=== PATIENT | female | born 1945 | race Caucasian/White ===

== ENCOUNTER → 2016-02-25 10:57 | Outpatient (CLI) | payer MEDICARE, OTHER ==
[2016-02-06 07:19] VITALS: BMI 17.0
[~2016-02-25 10:57] MED LIST: ADVAIR 100/501 DISK INH; BAYER CHEWABLE81 MG PO; CYCLOBENZAPRINE10 MG PO; HYDROCODON-ACE1 EAC7 PO; MEDROL DOSE PACK4 MG PO; NORCO 7.5/325 T1 TA1 PO; VIBRAMYCIN 100100 MG PO; ZOFRAN4 MG PO
== END | disposition home or self-care (01) ==
LOC: D.CT 10:57
DX: R05 Cough (principal)

== ENCOUNTER 2016-03-04 12:46 | Inpatient (IN) | payer MEDICARE, OTHER ==
[~2016-03-04] VITALS: Ht 162.6 cm; Wt 41.8 kg
[~2016-03-04 12:46] MED LIST changes: -MEDROL DOSE PACK4 MG PO; -VIBRAMYCIN 100100 MG PO
--- NOTE | 2016-03-04 13:20 | NUR ---
REC'D PT FROM DR. KRAUSE'S OFFICE. PT A/O, AND AMBULATORY. C/O WEAKNESS. PLACED ON FALL PRECAUTIONS. 22G IV PLACED TO PT'S RIGHT FOREARM. PLACED PT ON 2L O2 VIA NC. ORIENTED PT TO ROOM. [place] HAT PLACED IN TOILET FOR I&O. PT'S GRANDDAUGHTER IN ROOM. CALL LIGHT WITH IN REACH. ALLERGY BAND AND FALL BAND PLACED ON PT. DR. KRAUSE HERE. WILL CONT. TO MONITOR.
[2016-03-04 13:36] VITALS: BP 106/45; BMI 15.1
--- NOTE | 2016-03-04 13:49 | NUR ---
PATIENT ARRIVED DIRECT ADMIT. IV STARTED BY Valery SOARES LPN. BREATHING TREATMENT GIVEN BY RESP. SEE ASSESSMENT FOR FURTHER
[2016-03-04 14:19] LABS: BASOPHILS 0.3 % (0.0-2.0); EOSINOPHILS 0.3 % (0-7); HEMATOCRIT 44.4 % (36.0-48.0); HEMOGLOBIN 14.1 g/dL (12-16); IMMATURE GRANULOCYTES 0.3 % (0-5); LYMPHOCYTES 9.7 % (15-50); MCH 29.4 pg (26.0-34.0); MCHC 31.8 g/dL (31.0-37.0); MCV 92.5 fL (80.0-100.0); MEAN PLATELET VOLUME 10.3 fL (7.4-10.4); MONOCYTES 11.1 % (2-11); NEUTROPHILS 78.3 % (40-80); PLATELET COUNT 286 10x3/uL (130-400); RDW 14.1 % (11.5-14.5); WBC 10.7 10x3/uL (4.8-10.8)
[2016-03-04 14:50] LABS: CALC OSMOLALITY 283 mosm/kg (275-300); CALCIUM 9.4 mg/dL (8.5-10.1); CARBON DIOXIDE 27.2 mmol/L (21.0-32.0); CHLORIDE - SERUM 102 mmol/L (98-107); CREATININE - SERUM 0.8 mg/dL (0.6-1.3); GLUCOSE 105 mg/dL (74-106); POTASSIUM - SERUM 4.2 mmol/L (3.5-5.1); SODIUM 142 mmol/L (136-145); UREA NITROGEN 15 mg/dL (7-18); eGFR NON AFRICAN AMERICAN 75 mL/min (90-120)
--- NOTE | 2016-03-04 15:21 | NUR ---
PT SITTING UP IN BED VISITNG WITH FAMILY. A/O. NO DISTRESS NOTED. DENIES NEEDS. IV ZITHROMAX INFUSING. CALL LIGHT WITH IN REACH. WILL CONT. TO MONITOR.
[2016-03-04 16:00] VITALS: BP 106/45; BP 128/69
--- NOTE | 2016-03-04 18:08 | NUR ---
SITTING UP IN BED WATCHING TV. A/O. REFUSED SUPPER. C/O NAUSEA. ZOFRAN GIVEN. PT JUST WANTED COFFEE. CALL LIGHT WITH IN REACH. WILL CONT. TO MONITOR.
--- NOTE | 2016-03-04 19:22 | NUR ---
PT SITTING UP IN BED, A/O, VISITING WITH FAMILY. STATES NAUSEA BETTER. DENIES NEEDS AT THIS TIME. NO DISTRESS NOTED. CALL LIGHT WITH IN REACH. WILL CONT. TO MONITOR.
[2016-03-04 20:00] VITALS: BP 121/38
[2016-03-05] VITALS: BP 115/49
--- NOTE | 2016-03-05 00:20 | NUR ---
PT LYING IN BED, HAS BEEN AWAKE, ALERT, ORIENTED, CURRENTLY RESTING, EYES CLOSED, RESPIRATIONS EVEN AND UNLABORED. PT STATED SHE HAS NAUSEA EARLIER WITH HER EVENING MEDS, HOWEVER IT HAS PASSED. CONTINUE TO MONITOR CLOSELY. BED LOW, CALL LIGHT IN REACH, SIDE RAILS X 2, HOB 25 DEGREES.
--- NOTE | 2016-03-05 03:38 | NUR ---
PT LYING IN BED, HAS BEEN AWAKE MOST OF THIS SHIFT, CONTINUES TO DENY ANY NEEDS. HOB 30 DEGREES, CALL LIGHT IN REACH, SIDE RAILS X 2, BED LOW. CONTINUE TO MONITOR CLOSELY.
[2016-03-05 04:00] VITALS: BP 112/48
[2016-03-05 06:08] LABS: BASOPHILS 0 % (0.0-2.0); EOSINOPHILS 0 % (0-7); HEMATOCRIT 38.2 % (36.0-48.0); HEMOGLOBIN 12.2 g/dL (12-16); IMMATURE GRANULOCYTES 0.2 % (0-5); LYMPHOCYTES 7.4 % (15-50); MCH 28.9 pg (26.0-34.0); MCHC 31.9 g/dL (31.0-37.0); MEAN PLATELET VOLUME 10.9 fL (7.4-10.4); NEUTROPHILS 88.4 % (40-80); PLATELET COUNT 275 10x3/uL (130-400); RBC 4.22 10x6/uL (4.00-5.40); RDW 13.9 % (11.5-14.5); WBC 8.7 10x3/uL (4.8-10.8)
[2016-03-05 06:21] LABS: MCV 90.5 fL (80.0-100.0)
[2016-03-05 06:26] LABS: CALC OSMOLALITY 275 mosm/kg (275-300); CALCIUM 8.7 mg/dL (8.5-10.1); CHLORIDE - SERUM 104 mmol/L (98-107); CREATININE - SERUM 0.7 mg/dL (0.6-1.3); GLUCOSE 120 mg/dL (74-106); POTASSIUM - SERUM 4.8 mmol/L (3.5-5.1); SODIUM 138 mmol/L (136-145); eGFR NON AFRICAN AMERICAN 88 mL/min (90-120)
[2016-03-05 06:27] LABS: UREA NITROGEN 11 mg/dL (7-18)
[2016-03-05 08:02] VITALS: BP 115/58
--- NOTE | 2016-03-05 08:20 | NUR ---
INTRODUCED MYSELF TO PT PRIMARY RN FOR TODAYS SHIFT. PT IS ALERT AND ORIENTED RESTING QUIETLY IN BED. PT ISNT FEELING WELL AND STATES SHE HASNT BEEN ABLE TO GET MUCH SLEEP LATELY. PT REFUSED HER LOVENOX AND STATES SHE TAKES BABY ASA AND THATS ALL SHE NEEDS. PT IS UP AD NANCY AND ALSO REFUSES SCDS. PT HAS A R.FA PIV WITH NS @30ML/HR CURRENTLY INFUSING. DRSG CDI AND SWAB CAPS IN USE. RR NONLABORED WITH NC @2L IN PLACE. PT DENIES ANY FURTHER NEEDS AT THIS TIME. CL IN REACH, BED IN LOWEST, SIDE RAILS X2. WILL CPOC.
[2016-03-05 12:14] VITALS: BP 118/52
--- NOTE | 2016-03-05 12:50 | NUR ---
INITIATED PTS IVPB ROCEPHIN TO BE INFUSED OVER 30 MINS VIA R.FA PIV. DRSG CDI, SWAB CAPS IN USE. PT DENIES ANY PAIN OR CURRENT NEEDS. CL IN REACH. WILL CTM.
[2016-03-05 13:13] VITALS: Ht 162.6 cm; Wt 41.8 kg
--- NOTE | 2016-03-05 14:06 | NUR ---
DISCONNECTED PT REQUESTED SO SHE CAN AMBULATE WITH HER GRANDDAUGHTER. PT DENIES ANY FURTHER NEEDS. WILL CTM.
--- NOTE | 2016-03-05 14:59 | NUR ---
CONNECTED PT BACK TO HER IV POLE. INITIATED IVPB ANBX. PT RESTING QUIETLY AND STATES SHE WALKED 3 LAPS WITH HER GRANDDAUGHTER AND IT FELT GOOD. PT DENIES ANY FURTHER NEEDS AT THIS TIME. CL IN REACH. WILL CTM.
[2016-03-05 16:23] VITALS: BP 103/52
[2016-03-05 20:00] VITALS: BP 105/36
--- NOTE | 2016-03-05 21:29 | NUR ---
RESTING IN BED. ALERT ORIENTED CONVERSANT. DENIES NEEDS. NO ACUTE DISTRESS NOTED
[2016-03-06] VITALS: BP 118/59
--- NOTE | 2016-03-06 04:05 | NUR ---
DOG WARDEN AT BEDSIDE TO OBTAIN VITALS, CALL LIGHT IN REACH. WILL CONTINUE TO MONITOR.
[2016-03-06 06:23] LABS: BASOPHILS 0.1 % (0.0-2.0); EOSINOPHILS 0 % (0-7); HEMATOCRIT 39.5 % (36.0-48.0); HEMOGLOBIN 12.3 g/dL (12-16); IMMATURE GRANULOCYTES 0.2 % (0-5); LYMPHOCYTES 4.5 % (15-50); MCH 28.6 pg (26.0-34.0); MCHC 31.1 g/dL (31.0-37.0); MCV 91.9 fL (80.0-100.0); MEAN PLATELET VOLUME 10.4 fL (7.4-10.4); MONOCYTES 3.3 % (2-11); NEUTROPHILS 91.9 % (40-80); PLATELET COUNT 271 10x3/uL (130-400); WBC 16.2 10x3/uL (4.8-10.8)
[2016-03-06 06:41] LABS: CALC OSMOLALITY 278 mosm/kg (275-300); CALCIUM 8.5 mg/dL (8.5-10.1); CARBON DIOXIDE 26.9 mmol/L (21.0-32.0); CHLORIDE - SERUM 104 mmol/L (98-107); CREATININE - SERUM 0.8 mg/dL (0.6-1.3); GLUCOSE 120 mg/dL (74-106); POTASSIUM - SERUM 4.5 mmol/L (3.5-5.1); SODIUM 138 mmol/L (136-145); eGFR NON AFRICAN AMERICAN 75 mL/min (90-120)
[2016-03-06 06:44] LABS: UREA NITROGEN 17 mg/dL (7-18)
[2016-03-06 07:51] VITALS: BP 108/43
--- NOTE | 2016-03-06 08:13 | NUR ---
AM ROUNDING- PT SITTING UP IN BED RESTING WITH EYES OPEN. ON ROOM AIR. NO MONITOR. PT IS ALERT AND ORIENTED. IV SEEN TO RIGHT FOREARM THAT IS SALINE LOCKED AND PATENT. PT DOES USE 02 AT 2L VIA NC IF NEEDS TO PER REPORT. PER REPORT FROM MARKETING PERFORMANCE ANALYST NURSE, GUSTAVO, PT IS UP AD NANCY. NO NEED AT CURRENT TIME. WILL CONTINUE TO MONITOR.
[2016-03-06 12:00] VITALS: BP 108/46
--- NOTE | 2016-03-06 15:35 | NUR ---
PT IS CURRENTLY REQUESTING A CHOCLATE BOOST DRINK. CALLED [facility]. [facility] STATED THEY WOULD BRING ONE UP FOR PT.
[2016-03-06 15:58] VITALS: BP 119/43
--- NOTE | 2016-03-06 16:36 | NUR ---
Patient Name: ERA HOGAN Admission Status: Elective Accout number: [id number] Admission Date: 03-04-2016 : 1945 Admission Diagnosis:SHORTNESS OF BREATH Attending: DIAMOND Current LOS: 2 Anticipated DC Date: Planned Disposition: Home Primary Insurance: MEDICARE A & B Discharge Planning Comments: * Is the patient Alert and Oriented? Yes 0 * How many steps to enter\exit or inside your home? NONE 0 * PCP DR. KRAUSE 0 * [facility]acy [facility] 0 * Preadmission Environment Home with Family 0 * ADLs Independent 0 * Equipment None 0 * Other Equipment NO MEDICAL EQUIPMENT PROVIDER PREFERENCE 0 * List name and contact numbers for known caregivers / representatives who currently or will assist patient after discharge: REYES HOGAN, SON, 0 * Community resources currently utilized None 0 * Please name any agencies selected above. NONE 0 * Additional services required to return to the preadmission environment? No 0 * Can the patient safely return to the preadmission environment? Yes 0 * Has this patient been hospitalized within the prior 30 days at any hospital? No 0 CM MET WITH PT IN ROOM TO DISCUSS DISCHARGE PLANNING AND NEEDS. PT REPORTS LIVING AT HOME INDEPENDENTLY WITH ADULT GRANDDAUGHTER. PT HAS NO MEDICAL EQUIPMENT AND NO OUTSIDE SERVICES ASSISTING IN THE HOME. CM DISCUSSED AVAILABILITY OF HOME HEALTH, REHAB SERVICES AND MEDICAL EQUIPMENT. PT DENIES DISCHARGE NEEDS, REPORTS HER SON OR GRANDDAUGHTER WILL PICK HER UP FOR DISCHARGE HOME. IMPORTANT MESSAGE FROM MEDICARE PROVIDED AND EXPLAINED. Hydrator Operator: Thomas Holloway
--- NOTE | 2016-03-06 18:04 | NUR ---
PT IS UP WALKING AROUND HER ROOM. NO NEED AT CURRENT TIME. WILL CONTINUE TO MONITOR.
--- NOTE | 2016-03-06 19:23 | NUR ---
RESUMED CARE, PT SITTING UP IN BED, ASKING FOR IV TO BE SL, IV-RFA, DENIES ANY NEEDS, CALL LIGHT IN REACH, BED IS LOW, WILL CONTINUE TO MONITOR
[2016-03-06 20:00] VITALS: BP 119/43
[2016-03-07] VITALS: BP 113/38
--- NOTE | 2016-03-07 01:50 | NUR ---
PT RESTING SOUNDLY WITHOUT C/O OR DISTRESS NOTED. CALL LIGHT WITHIN REACH. WILL CONT TO MONITOR.
[2016-03-07 04:00] VITALS: BP 121/50
--- NOTE | 2016-03-07 04:13 | NUR ---
SLEEPING, BED IS LOW, SRX1, CALL LIGHT IN REACH
[2016-03-07 06:33] LABS: BASOPHILS 0 % (0.0-2.0); EOSINOPHILS 0 % (0-7); HEMATOCRIT 38.4 % (36.0-48.0); HEMOGLOBIN 11.9 g/dL (12-16); IMMATURE GRANULOCYTES 0.4 % (0-5); LYMPHOCYTES 6.3 % (15-50); MCH 28.3 pg (26.0-34.0); MCV 91.2 fL (80.0-100.0); MEAN PLATELET VOLUME 10.9 fL (7.4-10.4); MONOCYTES 4.4 % (2-11); NEUTROPHILS 88.9 % (40-80); PLATELET COUNT 277 10x3/uL (130-400); RBC 4.21 10x6/uL (4.00-5.40); RDW 14.1 % (11.5-14.5); WBC 13.1 10x3/uL (4.8-10.8)
[2016-03-07 06:43] LABS: CALC OSMOLALITY 280 mosm/kg (275-300); CALCIUM 8.7 mg/dL (8.5-10.1); CARBON DIOXIDE 27.1 mmol/L (21.0-32.0); CHLORIDE - SERUM 106 mmol/L (98-107); CREATININE - SERUM 0.7 mg/dL (0.6-1.3); GLUCOSE 103 mg/dL (74-106); POTASSIUM - SERUM 4.5 mmol/L (3.5-5.1); SODIUM 140 mmol/L (136-145); UREA NITROGEN 17 mg/dL (7-18); eGFR NON AFRICAN AMERICAN 88 mL/min (90-120)
--- NOTE | 2016-03-07 07:28 | NUR ---
AM ROUNDING- PT LAYING ON RIGHT SIDE WITH EYES CLOSED RESTING. ON ROOM AIR. NO MONITOR. IV SEEN TO RIGHT FOREARM THAT IS SALINE LOCKED AND PATENT. PT IS UP AD NANCY PER REPORT FROM CONSTRUCTION EQUIPMENT OVERHAULER NURSE, NIKOLAS. NO NEED AT CURRENT TIME. WILL CONTINUE TO MONITOR.
[2016-03-07 08:02] VITALS: BP 104/53
[2016-03-07 11:18] VITALS: BP 111/48
[2016-03-07 15:50] VITALS: BP 125/62
--- NOTE | 2016-03-07 18:07 | NUR ---
PT UP WALKING AROUND ROOM. NO NEED AT CURRENT TIME. WILL CONTINUE TO MONITOR.
--- NOTE | 2016-03-07 19:30 | NUR ---
RESUMED CARE OF PT, SITTING UP IN CHAIR, DENIES ANY NEEDS, [id number], CALL LIGHT IN REACH
[2016-03-07 20:28] VITALS: BP 118/32
--- NOTE | 2016-03-07 23:09 | NUR ---
PT LAYING IN BED NO DISTRESS OBSERVED CALL LIGHT IN REACH SRX2 BED LOW AND LOCKED WILL MONITOR
[2016-03-08 00:19] VITALS: BP 118/70
--- NOTE | 2016-03-08 04:58 | NUR ---
SLEEPING, NO DISTRESS NOTICED, CALL LIGHT IN REACH
[2016-03-08 05:17] VITALS: BP 116/68
[2016-03-08 05:35] LABS: BASOPHILS 0.1 % (0.0-2.0); EOSINOPHILS 0 % (0-7); HEMATOCRIT 40.3 % (36.0-48.0); HEMOGLOBIN 12.6 g/dL (12-16); IMMATURE GRANULOCYTES 0.8 % (0-5); LYMPHOCYTES 7.7 % (15-50); MCH 28.7 pg (26.0-34.0); MCHC 31.3 g/dL (31.0-37.0); MCV 91.8 fL (80.0-100.0); MEAN PLATELET VOLUME 10.6 fL (7.4-10.4); NEUTROPHILS 86.4 % (40-80); PLATELET COUNT 262 10x3/uL (130-400); RBC 4.39 10x6/uL (4.00-5.40); WBC 10.3 10x3/uL (4.8-10.8)
[2016-03-08 05:48] LABS: CALC OSMOLALITY 281 mosm/kg (275-300); CARBON DIOXIDE 27.7 mmol/L (21.0-32.0); CHLORIDE - SERUM 104 mmol/L (98-107); CREATININE - SERUM 0.7 mg/dL (0.6-1.3); GLUCOSE 123 mg/dL (74-106); POTASSIUM - SERUM 4.9 mmol/L (3.5-5.1); SODIUM 140 mmol/L (136-145); UREA NITROGEN 17 mg/dL (7-18); eGFR NON AFRICAN AMERICAN 88 mL/min (90-120)
--- NOTE | 2016-03-08 07:31 | NUR ---
RECIEVED REPORT ON PATIENT, PATIENT IS ALERT AND ORIENTED AT THIS TIME. PATIENT HAS A R FA IV THAT IS SL AT THIS TIME. PATIENT DENIES ANY NEEDS OR COMPLAINTS AT THIS TIME. GETTING BREATHING TREATMENT AT THIS TIME. BED LOW AND LOCKED. WILL CONT TO MONITOR PATIENT. CPOC
[2016-03-08 07:41] VITALS: BP 110/41
--- NOTE | 2016-03-08 09:15 | NUR ---
MORNING MEDICATION GIVEN, ASSESSMENT DONE. PATIENT DENIES ANY NEEDS AT THIS TIME. CPOC
--- NOTE | 2016-03-08 11:00 | NUR ---
PATIENT WALKING HALLWAYS. DENIES ANY NEEDS. CPOC
[2016-03-08 11:23] VITALS: BP 122/56
--- NOTE | 2016-03-08 14:00 | NUR ---
PATIENT SITTING UP IN BED, VISITOR AT BEDSIDE. PATIENT DENIES ANY NEEDS OR COMPLAINTS. CPOC
[2016-03-08 15:24] VITALS: BP 121/32
--- NOTE | 2016-03-08 16:00 | NUR ---
PATIENT RESTING IN BED, DENIES ANY PAIN AT THIS TIME. BED LOW AND LOCKED. CALL LIGHT IN REACH. CPOC
--- NOTE | 2016-03-08 18:18 | NUR ---
PATIENT SITTING ON SIDE OF BED EATING DINNER. DENIES ANY NEEDS. CPOC
[2016-03-08 19:00] VITALS: BP 127/51
--- NOTE | 2016-03-08 19:47 | NUR ---
RESUMED CARE OF PT, SITTING IN CHAIR WATCHING TV, DENIES ANY NEEDS, IV-RFA-SL, CALL LIGHT IN REACH, WILL CONTINUE TO MONITOR
[2016-03-09] VITALS: BP 113/44
--- NOTE | 2016-03-09 03:51 | NUR ---
SLEEPING, BED IS LOW, SRX2, CALL LIGHT IN REACH
[2016-03-09 04:00] VITALS: BP 129/54
[2016-03-09 05:35] LABS: BASOPHILS 0.1 % (0.0-2.0); EOSINOPHILS 0 % (0-7); HEMATOCRIT 41.1 % (36.0-48.0); HEMOGLOBIN 12.9 g/dL (12-16); IMMATURE GRANULOCYTES 1.4 % (0-5); LYMPHOCYTES 8.8 % (15-50); MCH 28.5 pg (26.0-34.0); MCHC 31.4 g/dL (31.0-37.0); MCV 90.9 fL (80.0-100.0); MEAN PLATELET VOLUME 11.4 fL (7.4-10.4); MONOCYTES 5.6 % (2-11); NEUTROPHILS 84.1 % (40-80); PLATELET COUNT 279 10x3/uL (130-400); RBC 4.52 10x6/uL (4.00-5.40); RDW 13.7 % (11.5-14.5); WBC 9.7 10x3/uL (4.8-10.8)
--- NOTE | 2016-03-09 06:00 | NUR ---
NO CHANGES FROM PREVIOUS ASSESSMENT, CALL LIGHT IN REACH. WILL CONTINUE WITH PLAN OF CARE.
[2016-03-09 06:08] LABS: CALC OSMOLALITY 278 mosm/kg (275-300); CALCIUM 8.5 mg/dL (8.5-10.1); CARBON DIOXIDE 25.8 mmol/L (21.0-32.0); CHLORIDE - SERUM 105 mmol/L (98-107); CREATININE - SERUM 0.7 mg/dL (0.6-1.3); GLUCOSE 100 mg/dL (74-106); POTASSIUM - SERUM 4.7 mmol/L (3.5-5.1); SODIUM 140 mmol/L (136-145); UREA NITROGEN 13 mg/dL (7-18); eGFR NON AFRICAN AMERICAN 88 mL/min (90-120)
--- NOTE | 2016-03-09 08:02 | NUR ---
ASSESSMENT DONE. PT SLEEPING, EASILY AROUSED. ON RA. DENIES SOB. A/O. WANTS TO GO HOME. DENIES WANTS OR NEEDS AT THIS TIME. CALL LIGHT WITH IN REACH. WILL CONT. TO MONITOR.
[2016-03-09 08:15] VITALS: BP 107/54
--- NOTE | 2016-03-09 11:26 | NUR ---
PT SLEEPING. APPEARS COMFORTABLE. RESP EVEN AND UNLABORED. CALL LIGHT WITH IN REACH. WILL CONT. TO MONITOR.
[2016-03-09 12:05] VITALS: BP 110/84
[2016-03-09] MEDS ORDERED: MEDROL DOSE PACK4 MG PO (13:39)
[2016-03-09] MEDS ORDERED: VIBRAMYCIN 100100 MG PO (13:39)
--- NOTE | 2016-03-09 15:25 | NUR ---
D/C INSTRUTIONS GIVEN TO PT AND HER GRAND-DAUGHTER. VERBALIZED UNDERSTANDING. IV ZITHROMAX INFUSING. WILL D/C IV WHEN ANTIBIOTIC DONE.
--- NOTE | 2016-03-09 15:50 | NUR ---
Patient Name: ERA HOGAN Encounter No: [id number] : 1945 Primary Insurance: MEDICARE A & B Anticipated DC Date: 03-09-2016 Planned Disposition: Home DCP follow-up note: CM MET WITH PT IN ROOM TO DISCUSS DISCHARGE NEEDS AND PLANNING. CM DISCUSSED AVAILABILITY OF HOME HEALTH, REHAB SERVICES AND MEDICAL EQUIPMENT. PT DENIES DISCHARGE NEEDS. FAMILY TO TRANSPORT HOME AT DISCHARGE. IMPORTANT MESSAGE FROM MEDICARE PROVIDED AND EXPLAINED. Thomas Holloway, CASE MANAGEMENT
--- NOTE | 2016-03-09 16:15 | NUR ---
PT'S IV REMOVED. WILL CALL FOR A W/C TO TAKE PT OUT IN.
--- NOTE | 2016-03-09 16:35 | NUR ---
PT D/C HOME-[facility]. HOME VIA PRIVATE VEHICLE.
== END 2016-03-09 16:20 | disposition home or self-care (01) | DRG 190 ==
LOC: D.M2 12:46
PROVIDERS: ADMIT Family Medicine
DX: J44.0 Chronic obstructive pulmonary disease with (acute) lower respiratory infection (principal); J18.9 Pneumonia, unspecified organism; I25.2 Old myocardial infarction; R11.10 Vomiting, unspecified; Z72.0 Tobacco use

== ENCOUNTER → 2016-07-29 08:09 | Outpatient (CLI) | payer MEDICARE, OTHER ==
[2016-03-05 13:13] VITALS: BMI 22.5
[~2016-07-29 08:09] MED LIST changes: +MEDROL DOSE PACK4 MG PO; +VIBRAMYCIN 100100 MG PO
[2016-07-29 08:34] LABS: BASOPHILS 0.7 % (0-2); EOSINOPHILS 5.4 % (0-7); HEMATOCRIT 47.5 % (36.0-48.0); HEMOGLOBIN 15.1 g/dL (12-16); IMMATURE GRANULOCYTES 0.1 % (0-5); LYMPHOCYTES 23.5 % (15-50); MCH 29.5 pg (26.0-34.0); MCHC 31.8 g/dL (31.0-37.0); MEAN PLATELET VOLUME 10.6 fL (7.4-10.4); MONOCYTES 9.6 % (2-11); NEUTROPHILS 60.7 % (40-80); PLATELET COUNT 235 10x3/uL (130-400); RBC 5.11 10x6/uL (4.00-5.40); RDW 14.6 % (11.5-14.5); WBC 7.5 10x3/uL (4.8-10.8)
[2016-07-29 09:05] LABS: ALBUMIN 3.7 g/dL (3.4-5.0); BILIRUBIN - DIRECT 0.11 mg/dL (0.00-0.30); BILIRUBIN - INDIRECT 0.78 mg/dL (0.00-1.00); BILIRUBIN - TOTAL 0.89 mg/dL (0.2-1.3)
== END | disposition home or self-care (01) ==
LOC: D.CT 07-24 09:30
PROVIDERS: Surgery
DX: Z85.89 Personal history of malignant neoplasm of other organs and systems (principal)

== ENCOUNTER 2016-08-04 17:56 | Inpatient (IN) | payer MEDICARE, OTHER ==
[~2016-08-04] VITALS: Ht 160 cm; Wt 43.1 kg
--- NOTE | 2016-08-04 18:49 | NUR ---
RECIEVED PT VIA DIRECT ADMIT. PT ORIENTED TO ROOM AND UNIT. IV STARTED TO PTS RIGHT ARM, 22G FLUSHED WITH 10CC OF NS AND SECURED WITH OP-SITE AND TAPE. BED IN LOW POSITION, PT TAKEN FOR X-RAY AT THIS TIME.
--- NOTE | 2016-08-04 20:00 | NUR ---
ASSESSMENT PER ADMIT PACKET. IV PATENT SALINE LOCKED RT ARM. MEDS GIVEN PER APR. O2 ON 2L/M PER NC RT LOWER LOBES DIMINISHED RT UPPER LOBES WHEEZES. ALERT/ORIENTED X3 SON IN ROOM.
--- NOTE | 2016-08-04 22:00 | NUR ---
EYES CLOSED RESPIRATIONS WITH EASE AND UNLABORED. SR UP X2 CALL LIGHT WITHIN REACH.
[2016-08-04 22:21] VITALS: BP 112/30; BMI 16.8
[2016-08-05] VITALS: BP 105/32
--- NOTE | 2016-08-05 | NUR ---
RESTING QUIETLY DENIES NEEDS. BEDSIDE UPDRAFT TX GIVEN PER RT TECH.
--- NOTE | 2016-08-05 02:08 | NUR ---
EYES CLOSED RESPIRATIONS WITH EASE AND UNLABORED.
[2016-08-05 04:00] VITALS: BP 97/38
[2016-08-05 07:26] LABS: ALBUMIN 2.9 g/dL (3.4-5.0); ANION GAP 15.4 mmol/L (8-16); BILIRUBIN - TOTAL 1.32 mg/dL (0.2-1.3); CALCIUM 8.9 mg/dL (8.5-10.1); CARBON DIOXIDE 23.5 mmol/L (21.0-32.0); CREATININE - SERUM 1.2 mg/dL (0.6-1.3); POTASSIUM - SERUM 3.9 mmol/L (3.5-5.1); PROTEIN - SERUM 6.6 g/dL (6.4-8.2)
--- NOTE | 2016-08-05 07:45 | NUR ---
PT AOX4 RESP EVEN AND NONLABORED PT DENIES NEEDS AT THIS TIME IV TO RIGHT ARM PATENT AND INTACT SRX2 BED AT LOWEST SETTING CALL LIGHT WITHIN REACH WILL CONTINUE TO MONITOR
[2016-08-05 07:54] LABS: BASOPHILS 0 % (0-2); EOSINOPHILS 0 % (0-7); HEMATOCRIT 42.8 % (36.0-48.0); IMMATURE GRANULOCYTES 0.3 % (0-5); LYMPHOCYTES 2.2 % (15-50); MCH 29.9 pg (26.0-34.0); MCHC 32.7 g/dL (31.0-37.0); MCV 91.3 fL (80.0-100.0); MEAN PLATELET VOLUME 11.7 fL (7.4-10.4); MONOCYTES 2.4 % (2-11); NEUTROPHILS 95.1 % (40-80); PLATELET COUNT 193 10x3/uL (130-400); RBC 4.69 10x6/uL (4.00-5.40); RDW 15.1 % (11.5-14.5); WBC 18.8 10x3/uL (4.8-10.8)
[2016-08-05 09:04] VITALS: BP 94/31
[2016-08-05 12:44] VITALS: BP 93/45
[2016-08-05 13:42] VITALS: Ht 160 cm; Wt 43.1 kg
[2016-08-05 16:30] VITALS: BP 108/32
[2016-08-05 20:00] VITALS: BP 85/38
--- NOTE | 2016-08-05 20:45 | NUR ---
PATIENT RESTING IN BED AND DENIES NEEDS AT THIS TIME. NO VISIBLE SIGNS OF DISTRESS. BED IN LOWEST POSITION AND CALL LIGHT WITHIN REACH. ENCOURAGED THE PATIENT TO CALL IF SHE HAS NEEDS.
[2016-08-06 04:39] VITALS: BP 99/33
[2016-08-06 06:55] LABS: BASOPHILS 0 % (0-2); EOSINOPHILS 0 % (0-7); HEMATOCRIT 40.9 % (36.0-48.0); HEMOGLOBIN 13.4 g/dL (12-16); IMMATURE GRANULOCYTES 0.3 % (0-5); LYMPHOCYTES 1.5 % (15-50); MCH 29.9 pg (26.0-34.0); MCHC 32.8 g/dL (31.0-37.0); MCV 91.3 fL (80.0-100.0); MEAN PLATELET VOLUME 11.9 fL (7.4-10.4); MONOCYTES 2.4 % (2-11); NEUTROPHILS 95.8 % (40-80); PLATELET COUNT 198 10x3/uL (130-400); RBC 4.48 10x6/uL (4.00-5.40); RDW 14.9 % (11.5-14.5); WBC 15.7 10x3/uL (4.8-10.8)
--- NOTE | 2016-08-06 07:15 | NUR ---
REPORT RECEIVED FROM ACCREDITATION SPECIALIST NURSE. CALL LIGHT IN REACH.
[2016-08-06 07:19] LABS: ALBUMIN 2.8 g/dL (3.4-5.0); ALKALINE PHOSPHATASE 68 U/L (46-116); ALT (SGPT) 20 U/L (10-68); BILIRUBIN - TOTAL 0.69 mg/dL (0.2-1.3); CALC OSMOLALITY 285 mosm/kg (275-300); CALCIUM 8.9 mg/dL (8.5-10.1); CARBON DIOXIDE 26.4 mmol/L (21.0-32.0); CHLORIDE - SERUM 105 mmol/L (98-107); CREATININE - SERUM 0.8 mg/dL (0.6-1.3); GLUCOSE 135 mg/dL (74-106); POTASSIUM - SERUM 4.2 mmol/L (3.5-5.1); PROTEIN - SERUM 6.6 g/dL (6.4-8.2); SODIUM 140 mmol/L (136-145); UREA NITROGEN 26 mg/dL (7-18); eGFR NON AFRICAN AMERICAN 75 mL/min (90-120)
[2016-08-06 07:58] VITALS: BP 102/41
--- NOTE | 2016-08-06 08:20 | NUR ---
ASSESSMENT COMPLETED. REFUSES SDCDs. CALL LIGHT IN REACH. WILL CONTINUE WITH PLAN OF CARE.
--- NOTE | 2016-08-06 10:54 | NUR ---
AM MEDS ADMINISTERED. WILL WALK IN HALLWAYS WITH PHYSICAL THERAPY.
--- NOTE | 2016-08-06 12:00 | NUR ---
AMBULATING IN HALLWAY WITH PHYSICAL THERAPY. TOLERATING WELL.
[2016-08-06 12:46] VITALS: BP 105/42
--- NOTE | 2016-08-06 14:20 | NUR ---
NO NEEDS VOICED AT THIS TIME. CALL LIGHT IN REACH.
--- NOTE | 2016-08-06 14:33 | NUR ---
Patient Name: ERA HOGAN Admission Status: Elective Accout number: [id number] Admission Date: 08-04-2016 : 1945 Admission Diagnosis:CHRONIC OBSTRUCTIVE PULMON DISEASE W ACUTE LOWER RESP I Attending: DIAMOND Current LOS: 2 Anticipated DC Date: 08-10-2016 Planned Disposition: Home Primary Insurance: MEDICARE A & B Discharge Planning Comments: CM MET WITH PATIENT REGARDING D/C NEEDS AND PLANS. PATIENT STATED HER SON AND GRANDDAUGHTER LIVES WITH HER AND THEY WILL DRIVE HER HOME AT DISCHARGE. 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 PATIENT STATED SHE IS INDEPENDENT WTIH HER CARE AND HAS NO DME AT HOME. PATIENTS PCP IS DR. KRAUSE AND [facility]Y [facility]. PATIENT DOES NOT WANT HOME HEALTH. CM WILL CONTINUE TO FOLLOW PATIENT WITH D/C NEEDS AND PLANS. PCP DR[facility]- [phone] REYES (SON) [phone] Assistant Signal Maintainer: Norma Salinas Is the patient Alert and Oriented? Yes 0 * How many steps to enter\exit or inside your home? STAIRCASE 0 * PCP DR. KRAUSE 0 * [facility]acy [facility] 0 * Preadmission Environment Home with Family 0 * ADLs Independent 0 * Equipment None 0 * List name and contact numbers for known caregivers / representatives who currently or will assist patient after discharge: REYES (SON) [phone] 0 * Community resources currently utilized None 0 * Additional services required to return to the preadmission environment? Yes 0 * Can the patient safely return to the preadmission environment? Yes 0 * Has this patient been hospitalized within the prior 30 days at any hospital? No 0 Grand Total: 0
[2016-08-06 16:02] VITALS: BP 110/41
--- NOTE | 2016-08-06 16:50 | NUR ---
NORCO PO. IV ABX INITIATED. SON IN ROOM. CALL LIGHT IN REACH.
--- NOTE | 2016-08-06 18:40 | NUR ---
NO CHANGES IN INITIAL ASSESSMENT. CALL LIGHT IN REACH. WILL CONTINUE WITH PLAN OF CARE.
[2016-08-06 20:54] VITALS: BP 109/32
[2016-08-07] VITALS: BP 93/36
[2016-08-07 04:00] VITALS: BP 111/29
[2016-08-07 05:29] LABS: BASOPHILS 0 % (0-2); EOSINOPHILS 0 % (0-7); HEMATOCRIT 38.6 % (36.0-48.0); HEMOGLOBIN 12.4 g/dL (12-16); IMMATURE GRANULOCYTES 0.2 % (0-5); LYMPHOCYTES 3.4 % (15-50); MCH 29.3 pg (26.0-34.0); MCHC 32.1 g/dL (31.0-37.0); MCV 91.3 fL (80.0-100.0); MEAN PLATELET VOLUME 11.5 fL (7.4-10.4); MONOCYTES 4.9 % (2-11); NEUTROPHILS 91.5 % (40-80); PLATELET COUNT 209 10x3/uL (130-400); RBC 4.23 10x6/uL (4.00-5.40); RDW 14.8 % (11.5-14.5); WBC 10.9 10x3/uL (4.8-10.8)
[2016-08-07 05:59] LABS: ALBUMIN 2.5 g/dL (3.4-5.0); ALKALINE PHOSPHATASE 63 U/L (46-116); CALC OSMOLALITY 283 mosm/kg (275-300); CALCIUM 8.3 mg/dL (8.5-10.1); CARBON DIOXIDE 26.2 mmol/L (21.0-32.0); CHLORIDE - SERUM 106 mmol/L (98-107); CREATININE - SERUM 0.8 mg/dL (0.6-1.3); GLUCOSE 123 mg/dL (74-106); POTASSIUM - SERUM 3.9 mmol/L (3.5-5.1); PROTEIN - SERUM 5.9 g/dL (6.4-8.2); SODIUM 140 mmol/L (136-145); UREA NITROGEN 23 mg/dL (7-18); eGFR NON AFRICAN AMERICAN 75 mL/min (90-120)
[2016-08-07 06:00] LABS: ALT (SGPT) 14 U/L (10-68)
--- NOTE | 2016-08-07 07:10 | NUR ---
PATIENT RECEIVED IN [place] POSITION ALERT AND RESTING QUIETLY. RESPIRATIONS EVEN AND UNLABORED. DENIES NEEDS. SIDE RAILS UP X2. BED IN LOW POSITION. CALL LIGHT IN REACH.
[2016-08-07 07:58] VITALS: BP 113/46
--- NOTE | 2016-08-07 08:15 | NUR ---
PATIENT SITTING UP ON SIDE OF BED EATING BREAKFAST. NO SIGNS OF DISTRESS NOTED. SCHEDULED MEDICATION ADMINISTERED. SIDE RAILS UP X2. BED IN LOW POSITION. CALL LIGHT IN REACH.
--- NOTE | 2016-08-07 11:06 | NUR ---
ALERT IN [place] POSITION WATCHING TV. NO SIGNS OF DISTRESS NOTED. WANTING TO GO HOME. DENIES NEEDS. SIDE RAILS UP X2. BED IN LOW POSITION. CALL LIGHT IN REACH.
[2016-08-07 12:28] VITALS: BP 108/42
[2016-08-07] MEDS ORDERED: PREDNISONE20 MG PO (13:49)
[2016-08-07] MEDS ORDERED: ZITHROMAX250 MG PO (13:50)
--- NOTE | 2016-08-07 13:58 | NUR ---
PATIENT ALERT IN BED. NO SIGNS OF DISTRESS NOTED. ANTICIPATING D/C HOME. IV ABX INITIATED. INFUSING TO RIGHT WRIST WITHOUT DIFFICULTY. NO REDNESS OR INFLAMMTION NOTED. DENIES NEEDS. CALL LIGHT IN REACH.
--- NOTE | 2016-08-07 14:32 | NUR ---
CM REASSESSMENT NOTE: PATIENT IS DISCHARGING HOME TODAY. PATIENT DENIED HOME HEALTH AND HAD NO OTHER NEEDS AT THIS TIME. FAMILY WILL DRIVE PATIENT HOME.
--- NOTE | 2016-08-07 17:20 | NUR ---
IV D/C WITH CATH TIP INTACT. SITE COVERED WITH GAUZE AND BANDAID. D/C TEACHING PROVIDED. STATES UNDERSTANDING. DENIES QUESTIONS.
--- NOTE | 2016-08-07 17:55 | NUR ---
PATIENT D/C HOME WITH SON. TRANSFERRED DOWNSTAIRS VIA WHEELCHAIR WITH STAFF
== END 2016-08-07 18:00 | disposition home or self-care (01) | DRG 190 ==
LOC: D.MS 17:56
PROVIDERS: ADMIT Family Medicine
DX: J44.0 Chronic obstructive pulmonary disease with (acute) lower respiratory infection (principal); J18.9 Pneumonia, unspecified organism; J44.1 Chronic obstructive pulmonary disease with (acute) exacerbation

== ENCOUNTER 2016-10-25 16:46 | Emergency (ER) | payer MEDICARE, OTHER ==
[2016-08-05 13:42] VITALS: BMI 16.8
[~2016-10-25 16:46] MED LIST changes: +PREDNISONE20 MG PO; +ZITHROMAX250 MG PO
[2016-10-25 19:36] LABS: BASOPHILS 0.3 % (0-2); EOSINOPHILS 1.2 % (0-7); HEMATOCRIT 46.5 % (36.0-48.0); IMMATURE GRANULOCYTES 0.4 % (0-5); LYMPHOCYTES 10.2 % (15-50); MCHC 32.3 g/dL (31.0-37.0); MCV 89.9 fL (80.0-100.0); MEAN PLATELET VOLUME 10.1 fL (7.4-10.4); MONOCYTES 6.7 % (2-11); NEUTROPHILS 81.2 % (40-80); RBC 5.17 10x6/uL (4.00-5.40); RDW 13.9 % (11.5-14.5); WBC 14.9 10x3/uL (4.8-10.8)
[2016-10-25 19:37] LABS: PLATELET COUNT 406 10x3/uL (130-400)
[2016-10-25 20:03] LABS: ALBUMIN 3.3 g/dL (3.4-5.0); ANION GAP 14.4 mmol/L (8-16); BILIRUBIN - TOTAL 0.52 mg/dL (0.2-1.3); CALCIUM 9.3 mg/dL (8.5-10.1); CREATININE - SERUM 0.9 mg/dL (0.6-1.3); POTASSIUM - SERUM 4.4 mmol/L (3.5-5.1); PROTEIN - SERUM 7.8 g/dL (6.4-8.2)
[2016-10-25 20:11] LABS: APPEARANCE HAZY (CLEAR); BILIRUBIN NEGATIVE (NEGATIVE); COLOR YELLOW (YELLOW); GLUCOSE NEGATIVE (NEGATIVE); KETONE NEGATIVE (NEGATIVE); LEUKOCYTE ESTERASE TRACE (NEGATIVE); NITRITE NEGATIVE (NEGATIVE); PROTEIN NEGATIVE (NEGATIVE); SPECIFIC GRAVITY 1.015 (1.005-1.020); UROBILINOGEN NORMAL (NORMAL)
[2016-10-25 20:13] LABS: BACTERIA MANY /hpf (NONE SEEN); EPITHELIAL CELLS 0-5 /hpf (0-5); GRANULAR CAST 0-5 /lpf (NONE SEEN); MUCUS >1+ /lpf (NONE SEEN); RED CELLS - URINE 0-5 /hpf (0-5)
[2016-10-25 20:14] LABS: AMORPHOUS SEDIMENT >1+ /lpf (NONE SEEN)
== END 2016-10-25 21:36 | disposition home or self-care (01) ==
LOC: D.ER 16:46
PROVIDERS: Emergency Medicine
DX: J20.9 Acute bronchitis, unspecified (principal)

== ENCOUNTER 2016-11-09 17:05 | Emergency (ER) | payer MEDICARE, OTHER ==
[2016-08-05 13:42] VITALS: BMI 16.8
[2016-11-09 18:41] LABS: BASOPHILS 0.3 % (0-2); EOSINOPHILS 4.1 % (0-7); HEMATOCRIT 47.1 % (36.0-48.0); HEMOGLOBIN 14.9 g/dL (12-16); IMMATURE GRANULOCYTES 0.6 % (0-5); LYMPHOCYTES 13.9 % (15-50); MCH 28.5 pg (26.0-34.0); MCHC 31.6 g/dL (31.0-37.0); MCV 90.2 fL (80.0-100.0); MEAN PLATELET VOLUME 11.1 fL (7.4-10.4); MONOCYTES 6.6 % (2-11); NEUTROPHILS 74.5 % (40-80); RBC 5.22 10x6/uL (4.00-5.40); RDW 14.8 % (11.5-14.5); WBC 13.9 10x3/uL (4.8-10.8)
[2016-11-09 19:08] LABS: ALBUMIN 3.5 g/dL (3.4-5.0); ALKALINE PHOSPHATASE 91 U/L (46-116); ALT (SGPT) 23 U/L (10-68); BILIRUBIN - TOTAL 0.59 mg/dL (0.2-1.3); CALC OSMOLALITY 273 mosm/kg (275-300); CALCIUM 9.4 mg/dL (8.5-10.1); CARBON DIOXIDE 23.6 mmol/L (21.0-32.0); CHLORIDE - SERUM 103 mmol/L (98-107); CREATININE - SERUM 0.7 mg/dL (0.6-1.3); GLUCOSE 81 mg/dL (74-106); POTASSIUM - SERUM 4.9 mmol/L (3.5-5.1); PROTEIN - SERUM 6.8 g/dL (6.4-8.2); SODIUM 137 mmol/L (136-145); UREA NITROGEN 15 mg/dL (7-18); eGFR NON AFRICAN AMERICAN 88 mL/min (90-120)
[2016-11-09 19:09] LABS: PLATELET COUNT 270 10x3/uL (130-400)
[2016-11-09 19:13] LABS: TROPONIN-I < 0.017 ng/mL (0.000-0.060)
== END 2016-11-09 20:38 | disposition home or self-care (01) ==
LOC: D.ER 17:05
PROVIDERS: Emergency Medicine
DX: J44.1 Chronic obstructive pulmonary disease with (acute) exacerbation (principal); Z85.72 Personal history of non-Hodgkin lymphomas; Z86.79 Personal history of other diseases of the circulatory system; R00.0 Tachycardia, unspecified; F17.200 Nicotine dependence, unspecified, uncomplicated

== ENCOUNTER 2017-02-12 18:32 | Inpatient (IN) | payer MEDICARE, OTHER ==
[~2017-02-12] VITALS: Ht 160 cm; Wt 39.1 kg
[2017-02-12 19:22] LABS: HEMATOCRIT 43.5 % (36.0-48.0); HEMOGLOBIN 14.3 g/dL (12-16); MCH 28.4 pg (26.0-34.0); MCHC 32.9 g/dL (31.0-37.0); MCV 86.5 fL (80.0-100.0); MEAN PLATELET VOLUME 9.6 fL (7.4-10.4); PLATELET COUNT 297 10x3/uL (130-400); RBC 5.03 10x6/uL (4.00-5.40); RDW 15.8 % (11.5-14.5); WBC 24.9 10x3/uL (4.8-10.8)
[2017-02-12 19:35] LABS: LYMPHOCYTES 6 % (15-50); NEUTROPHILS 94 % (40-80); PLATELET ESTIMATE NORMAL
[2017-02-12 19:48] LABS: ANION GAP 17.3 mmol/L (8-16); BILIRUBIN - TOTAL 1.35 mg/dL (0.2-1.3); CALCIUM 9.1 mg/dL (8.5-10.1); CARBON DIOXIDE 24.1 mmol/L (21.0-32.0); POTASSIUM - SERUM 4.4 mmol/L (3.5-5.1); PROTEIN - SERUM 6.1 g/dL (6.4-8.2)
[2017-02-13] VITALS (7 sets, daily range): BP systolic 81–105; BP diastolic 37–47; Ht 160 cm; Wt 39.1 kg
[2017-02-13 05:10] LABS: BASOPHILS 0 % (0-2); EOSINOPHILS 0 % (0-7); HEMATOCRIT 38.5 % (36.0-48.0); HEMOGLOBIN 12.4 g/dL (12-16); IMMATURE GRANULOCYTES 0.3 % (0-5); LYMPHOCYTES 1.4 % (15-50); MCH 28.1 pg (26.0-34.0); MCHC 32.2 g/dL (31.0-37.0); MCV 87.1 fL (80.0-100.0); MEAN PLATELET VOLUME 9.9 fL (7.4-10.4); MONOCYTES 1.6 % (2-11); NEUTROPHILS 96.7 % (40-80); PLATELET COUNT 257 10x3/uL (130-400); RBC 4.42 10x6/uL (4.00-5.40); RDW 15.8 % (11.5-14.5); WBC 20.5 10x3/uL (4.8-10.8)
[2017-02-13 05:28] LABS: CALC OSMOLALITY 284 mosm/kg (275-300); CALCIUM 7.9 mg/dL (8.5-10.1); CARBON DIOXIDE 22.5 mmol/L (21.0-32.0); CHLORIDE - SERUM 108 mmol/L (98-107); CREATININE - SERUM 0.7 mg/dL (0.6-1.3); GLUCOSE 138 mg/dL (74-106); SODIUM 141 mmol/L (136-145); UREA NITROGEN 17 mg/dL (7-18); eGFR NON AFRICAN AMERICAN 88 mL/min (90-120)
[2017-02-13 08:09] LABS: APPEARANCE CLEAR (CLEAR); BILIRUBIN NEGATIVE (NEGATIVE); COLOR YELLOW (YELLOW); GLUCOSE NEGATIVE (NEGATIVE); KETONE SMALL mg/dL (NEGATIVE); NITRITE NEGATIVE (NEGATIVE); PROTEIN 1+ mg/dL (NEGATIVE); UROBILINOGEN NORMAL (NORMAL)
[2017-02-13 08:11] LABS: BACTERIA MODERATE /hpf (NONE SEEN); EPITHELIAL CELLS 0-5 /hpf (0-5); MUCUS >1+ /lpf (NONE SEEN); RED CELLS - URINE 0-5 /hpf (0-5)
[2017-02-14 05:00] VITALS: BP 112/49
[2017-02-14 07:28] VITALS: BP 112/55
[2017-02-14 11:04] VITALS: BP 122/42
[2017-02-14 20:00] VITALS: BP 124/46
[2017-02-15] VITALS: BP 118/46
[2017-02-15 08:51] VITALS: BP 110/41
[2017-02-15] MEDS ORDERED: IPRAT-ALBUT 0.5-3 ML INH (09:25)
[2017-02-15] MEDS ORDERED: ZITHROMAX250 MG PO (09:25)
[2017-02-15] MEDS ORDERED: FLORAJEN3 CAPS460 MG PO (09:26)
[2017-02-15] MEDS ORDERED: MUCINEX600 MG PO (09:26)
[2017-02-15] MEDS ORDERED: MEDROL DOSE PACK4 MG PO (09:26)
== END 2017-02-15 11:32 | disposition home or self-care (01) | DRG 191 ==
LOC: D.ER 18:32 → D.MS 22:59
PROVIDERS: Emergency Medicine; Family Medicine
DX: J44.1 Chronic obstructive pulmonary disease with (acute) exacerbation (principal); N39.0 Urinary tract infection, site not specified

== ENCOUNTER 2017-06-20 19:50 | Inpatient (IN) | payer MEDICARE, OTHER ==
[~2017-06-20] VITALS: Ht 160 cm; Wt 37.4 kg
[~2017-06-20 19:50] MED LIST changes: +FLORAJEN3 CAPS460 MG PO; +IPRAT-ALBUT 0.5-3 ML INH; +MUCINEX600 MG PO
[2017-06-20 20:00] VITALS: BP 122/51
[2017-06-20 20:43] LABS: HEMATOCRIT 44.6 % (36.0-48.0); HEMOGLOBIN 14.8 g/dL (12-16); MCH 29.2 pg (26.0-34.0); MCHC 33.2 g/dL (31.0-37.0); MEAN PLATELET VOLUME 10.9 fL (7.4-10.4); PLATELET COUNT 225 10x3/uL (130-400); RBC 5.07 10x6/uL (4.00-5.40); RDW 15.6 % (11.5-14.5); WBC 21.1 10x3/uL (4.8-10.8)
[2017-06-20 20:55] LABS: ALBUMIN 3.1 g/dL (3.4-5.0); ALKALINE PHOSPHATASE 90 U/L (46-116); ALT (SGPT) 26 U/L (10-68); CALC OSMOLALITY 272 mosm/kg (275-300); CALCIUM 9.5 mg/dL (8.5-10.1); CARBON DIOXIDE 22.9 mmol/L (21.0-32.0); CHLORIDE - SERUM 99 mmol/L (98-107); CREATININE - SERUM 1.4 mg/dL (0.6-1.3); GLUCOSE 240 mg/dL (74-106); POTASSIUM - SERUM 4.3 mmol/L (3.5-5.1); PROTEIN - SERUM 7.5 g/dL (6.4-8.2); SODIUM 131 mmol/L (136-145); UREA NITROGEN 18 mg/dL (7-18); eGFR NON AFRICAN AMERICAN 39 mL/min (90-120)
[2017-06-20 21:09] LABS: CKMB 0.8 U/L (0.0-3.6); CREATINE KINASE 68 UL (21-215); TROPONIN-I < 0.017 ng/mL (0.000-0.060)
[2017-06-20 21:18] LABS: LYMPHOCYTES 5 % (15-50); MONOCYTES 4 % (2-11); NEUTROPHILS 81 % (40-80); PLATELET ESTIMATE NORMAL; PLATELET MORPHOLOGY GIANT PLTS PRESENT
[2017-06-20 23:58] VITALS: BP 122/51; BMI 14.6
[2017-06-21 05:00] VITALS: BP 110/48
[2017-06-21 07:00] VITALS: BP 110/39
[2017-06-21 10:36] VITALS: Ht 160 cm; Wt 37.4 kg
[2017-06-21 12:00] VITALS: BP 109/40
[2017-06-21 17:14] VITALS: BP 111/39
[2017-06-21 20:36] VITALS: BP 111/31
[2017-06-22] VITALS: BP 123/49
[2017-06-22 05:20] VITALS: BP 105/64
[2017-06-22 06:20] LABS: BASOPHILS 0 % (0-2); EOSINOPHILS 0 % (0-7); HEMATOCRIT 40.7 % (36.0-48.0); HEMOGLOBIN 13.1 g/dL (12-16); IMMATURE GRANULOCYTES 0.3 % (0-5); LYMPHOCYTES 1.8 % (15-50); MCH 28.4 pg (26.0-34.0); MCHC 32.2 g/dL (31.0-37.0); MCV 88.1 fL (80.0-100.0); MEAN PLATELET VOLUME 10.8 fL (7.4-10.4); MONOCYTES 3.5 % (2-11); NEUTROPHILS 94.4 % (40-80); PLATELET COUNT 263 10x3/uL (130-400); RBC 4.62 10x6/uL (4.00-5.40); RDW 15.4 % (11.5-14.5); WBC 23.6 10x3/uL (4.8-10.8)
[2017-06-22 06:25] LABS: CALCIUM 8.6 mg/dL (8.5-10.1); CARBON DIOXIDE 27.3 mmol/L (21.0-32.0); CHLORIDE - SERUM 105 mmol/L (98-107); MAGNESIUM - SERUM 2.4 mg/dL (1.8-2.4); PHOSPHOROUS 2.7 mg/dL (2.5-4.9); POTASSIUM - SERUM 4.1 mmol/L (3.5-5.1); SODIUM 143 mmol/L (136-145); eGFR NON AFRICAN AMERICAN 75 mL/min (90-120)
[2017-06-22 06:26] LABS: CALC OSMOLALITY 291 mosm/kg (275-300); CREATININE - SERUM 0.8 mg/dL (0.6-1.3); GLUCOSE 132 mg/dL (74-106); UREA NITROGEN 26 mg/dL (7-18)
[2017-06-22 09:25] VITALS: BP 127/48
[2017-06-22 12:22] VITALS: BP 140/53
[2017-06-22 16:46] VITALS: BP 132/74
[2017-06-22 21:27] VITALS: BP 110/47
[2017-06-23 01:02] VITALS: BP 108/41
[2017-06-23 05:20] LABS: BASOPHILS 0.1 % (0-2); EOSINOPHILS 0 % (0-7); HEMATOCRIT 38.6 % (36.0-48.0); HEMOGLOBIN 12.3 g/dL (12-16); IMMATURE GRANULOCYTES 0.3 % (0-5); LYMPHOCYTES 2.7 % (15-50); MCH 28.2 pg (26.0-34.0); MCHC 31.9 g/dL (31.0-37.0); MCV 88.5 fL (80.0-100.0); MEAN PLATELET VOLUME 10.4 fL (7.4-10.4); NEUTROPHILS 91.9 % (40-80); PLATELET COUNT 256 10x3/uL (130-400); RBC 4.36 10x6/uL (4.00-5.40); RDW 15.2 % (11.5-14.5); WBC 17.8 10x3/uL (4.8-10.8)
[2017-06-23 05:32] LABS: CALC OSMOLALITY 285 mosm/kg (275-300); CALCIUM 8.6 mg/dL (8.5-10.1); CARBON DIOXIDE 23.9 mmol/L (21.0-32.0); CHLORIDE - SERUM 107 mmol/L (98-107); CREATININE - SERUM 0.7 mg/dL (0.6-1.3); GLUCOSE 116 mg/dL (74-106); POTASSIUM - SERUM 4.3 mmol/L (3.5-5.1); SODIUM 141 mmol/L (136-145); UREA NITROGEN 24 mg/dL (7-18); eGFR NON AFRICAN AMERICAN 88 mL/min (90-120)
[2017-06-23 05:37] VITALS: BP 119/44
[2017-06-23 07:39] LABS: IMMUNOGLOBULIN A 77 mg/dL (87-352); IMMUNOGLOBULIN G 341 mg/dL (700-1600)
[2017-06-23 09:15] VITALS: BP 113/59
[2017-06-23 14:29] VITALS: BP 147/81
[2017-06-23 16:21] VITALS: BP 88/46
[2017-06-23 21:32] VITALS: BP 121/36
[2017-06-24 01:03] VITALS: BP 129/39
[2017-06-24 05:30] LABS: BASOPHILS 0.1 % (0-2); EOSINOPHILS 0 % (0-7); HEMATOCRIT 38.1 % (36.0-48.0); HEMOGLOBIN 12.1 g/dL (12-16); LYMPHOCYTES 4.2 % (15-50); MCH 28.1 pg (26.0-34.0); MCHC 31.8 g/dL (31.0-37.0); MCV 88.4 fL (80.0-100.0); MEAN PLATELET VOLUME 10.2 fL (7.4-10.4); MONOCYTES 5.2 % (2-11); NEUTROPHILS 89.5 % (40-80); PLATELET COUNT 277 10x3/uL (130-400); RBC 4.31 10x6/uL (4.00-5.40); RDW 15.1 % (11.5-14.5)
[2017-06-24 05:40] LABS: WBC 11.6 10x3/uL (4.8-10.8)
[2017-06-24 05:48] LABS: CALC OSMOLALITY 279 mosm/kg (275-300); CALCIUM 8.1 mg/dL (8.5-10.1); CARBON DIOXIDE 26.8 mmol/L (21.0-32.0); CHLORIDE - SERUM 107 mmol/L (98-107); CREATININE - SERUM 0.6 mg/dL (0.6-1.3); GLUCOSE 102 mg/dL (74-106); POTASSIUM - SERUM 4.5 mmol/L (3.5-5.1); SODIUM 139 mmol/L (136-145); UREA NITROGEN 19 mg/dL (7-18); eGFR NON AFRICAN AMERICAN > 90 mL/min (90-120)
[2017-06-24 08:13] VITALS: BP 125/52
[2017-06-24 12:51] VITALS: BP 134/69; BP 145/42
[2017-06-24] MEDS ORDERED: OMNICEF300 MG PO (13:07)
[2017-06-24] MEDS ORDERED: PREDNISONE20 MG PO (13:09)
[2017-06-24 17:07] VITALS: BP 116/32
[2017-06-27 03:06] LABS: IMMUNOGLOBULIN E 4 IU/mL (0-100)
== END 2017-06-24 18:38 | disposition home or self-care (01) | DRG 871 ==
LOC: D.ER 19:50 → D.M2 22:38
PROVIDERS: Family Medicine; Internal Medicine Pulmonary Disease
DX: A41.9 Sepsis, unspecified organism (principal); J15.6 Pneumonia due to other Gram-negative bacteria; J13 Pneumonia due to Streptococcus pneumoniae; J44.1 Chronic obstructive pulmonary disease with (acute) exacerbation; J44.0 Chronic obstructive pulmonary disease with (acute) lower respiratory infection; J84.9 Interstitial pulmonary disease, unspecified; N18.9 Chronic kidney disease, unspecified; I25.10 Atherosclerotic heart disease of native coronary artery without angina pectoris; J30.9 Allergic rhinitis, unspecified; Z87.891 Personal history of nicotine dependence

== ENCOUNTER 2017-09-11 20:25 | Inpatient (IN) | payer MEDICARE, OTHER ==
[~2017-09-11] VITALS: Ht 160 cm; Wt 40.1 kg
--- NOTE | ~2017-09-11 | MORECARE ---
CASE MANAGEMENT DISCHARGE SUMMARY PATIENT: ERA HOGAN UNIT: [id number] ADM DATE: 09/11/17 AGE: 72 : [birth year] SEX: F ROOM/BED: D.1238 AUTHOR: BRANDON, CATERPILLAR DRIVER PHYSICIAN: REFERRING PHYSICIAN: JEAN-CLAUDE ORTIZ MD DATE OF SERVICE: 09/11/17 Discharge Plan Patient Name: ERA HOGAN Facility: [facility]:[place] : 1945 Planned Disposition: Home Anticipated Discharge Date: 09/15/17 Discharge Date: 09/15/2017 Expected LOS: 4 Initial Reviewer: [email or web address] Initial Review Date: 09/15/2017 Generated: 09/15/17 6:34 pm Comments DCP- Discharge Planning Updated by [email or web address]: Thomas Holloway on 09/15/17 4:[address] Patient Name: ERA HOGAN Admission Status: ER Accout number: [id number] Admission Date: 09-11-2017 : 1945 Admission Diagnosis:SHORTNESS OF BREATH Attending: JEAN-CLAUDE ORTIZ Current LOS: 4 Anticipated DC Date: 09-15-2017 Planned Disposition: Home Primary Insurance: MEDICARE A & B Discharge Planning Comments: CM RECEIVED DISCHARGE ORDERS, MET WITH PT IN ROOM TO DISCUSS DISCHARGE PLANNING AND NEEDS. PT REPORTS LIVING AT HOME INDEPENDENTLY WITH ADULT SON. PT HAS NO MEDICAL EQUIPMENT AND NO OUTSIDE SERVICES ASSISTING IN THE HOME. CM DISCUSSED AVAILABILITY OF HOME HEALTH, REHAB SERVICES AND MEDICAL EQUIPMENT. PT DENIES DISCHARGE NEEDS, REPORTS HER SON WILL PICK HER UP FOR DISCHARGE HOME. IMPORTANT MESSAGE FROM MEDICARE PROVIDED AND EXPLAINED. RAG SHREDDER NURSE NOTIFIED. Hoop Punch And Coiler Operator: Thomas Holloway DCPIA - Discharge Planning Initial Assessment Updated by [email or web address]: Thomas Holloway on 09/15/17 5:30 pm * Is the patient Alert and Oriented? Yes * How many steps to enterexit or inside your home? NONE * PCP DR. KRAUSE * [facility]. * Preadmission Environment Home with Family * ADLs Independent * Equipment None * Other Equipment NO MEDICAL EQUIPMENT PROVIDER PREFERENCE * List name and contact numbers for known caregivers / representatives who currently or will assist patient after discharge: REYES HOGAN, SON, * Verbal permission to speak to the caregivers and representatives has been obtained from the patient. N/A * Community resources currently utilized None * Please name any agencies selected above. NONE * Additional services required to return to the preadmission environment? No * Can the patient safely return to the preadmission environment? Yes * Has this patient been hospitalized within the prior 30 days at any hospital? No Coverage Notice Reviewer: [id number] Renato Holloway Notice Issued Date-Time: 09/15/2017 9:00 Notice Type: IM Discharge Notice Notice Delivered To: Patient Relationship to Patient: Laborer Tree Tapping Name: Delivery Method: HAND - Hand Delivered Natalya Days: Prior Verbal Notification: Recipient Understood Notice: Yes Recipient Signature: Yes Med Rec Note Co-signed by Attending: Coverage Notice Comment: Patient Name: ERA HOGAN Page [phone] All edits/amendments must be made on the electronic document DICTATION DATE: 09/15/17 1734 ELECTRICAL CONTROLS ASSEMBLER: 09/15/17 1734 RPT#: [id number] DC DATE:09/15/17 STATUS: DIS IN [facility] [address] [place] [address] END OF REPORT
--- NOTE | ~2017-09-11 | HP ---
PATIENT: ERA HOGAN MEDICAL RECORD: [id number] ACCOUNT: [id number] LOCATION:[address] : [birth year] ADMISSION DATE: 09/11/17 HISTORY AND PHYSICAL EXAMINATION REASON FOR ADMISSION: Left chest pain and shortness of breath. HISTORY OF PRESENT ILLNESS: The patient is a 72-year-old female, patient of Dr. Vahe Garcia. She has a history of COPD and is on home updraft therapy. She states that she had increasing shortness of breath on exertion with dry cough for the last 3 days before admission. On the day of admission, she developed some sharp pleuritic type chest pain in the left anterior chest wall. For that reason, she came to the Emergency Room. She was hypoxic on room air in the ED and white count was elevated to 27,000. Though her chest x-ray initially was clear, it was felt she probably had a recurrent left lower lobe pneumonia. She is now admitted for further evaluation. PAST MEDICAL HISTORY: She was hospitalized in April of this year for left lower lobe pneumonia, COPD with exacerbation, UTI, history of SC, mitral valve prolapse, history of lymphoma of the stomach, history of colon cancer in 2016, postmenopausal. PAST SURGICAL HISTORY: She had a colon resection in 2016, hysterectomy, right shoulder arthroscopy. ALLERGIES: SULFA AND CIPRO. FAMILY HISTORY: Parents are , history of hypertension in the family. SOCIAL HISTORY: She smoked, quit approximately 15 years ago, but smoked heavily in the interim. Does not use recreational drugs. HOME MEDICATIONS: DuoNeb updrafts t.i.d., aspirin 81 mg daily, Advair 100/50 one puff b.i.d., guaifenesin 600 mg p.o. b.i.d. REVIEW OF SYSTEMS: GENERAL: Fatigued for the last several days. No fever. Fair appetite. HEENT: No recent visual change, sinus congestion, sore throat or hearing difficulty. RESPIRATORY: Increasing DLE with sharp pleuritic pain, worse with coughing in the left chest. No hemoptysis or sputum production. CARDIAC: No exertional chest pain, claudication or edema. GASTROINTESTINAL: No nausea, vomiting, change in stools or blood per rectum. GENITOURINARY: Denies incontinence or dysuria. GYNECOLOGIC: Recent vaginal bleeding. ENDOCRINE: Denies polyuria, polydipsia, heat or cold intolerance. NEUROLOGIC: No history of stroke, TIA, vascular headaches, or seizures. PSYCHIATRIC: Denies depressed mood. PHYSICAL EXAMINATION: VITAL SIGNS: Temperature 99 degrees Fahrenheit, pulse 107, respirations are 24, sat was 91%, blood pressure 107/69. GENERAL: Cachectic appearing female in no acute distress, in for mild dyspnea. HEENT: Eyes are clear. NECK: No bruits or masses. HISTORY AND PHYSICAL [id number] REA HOGAN CHEST: She has been very distant breath sounds bilaterally, question of rales in the left base and pleurisy with deep inspiration in the left anterior chest wall. No crepitance is noted. HEART: Tachycardic without murmur. ABDOMEN: Soft, nontender. No organomegaly. GENITOURINARY: Deferred. EXTREMITIES: No CC&E. NEUROLOGICAL: Oriented to person, place, and time. Cranial nerves intact. Gait normal. LABORATORY DATA: Show white count of 27,000 with left shift, H&H is 15 and 46.9 respectively. Chemistry: Sodium is 132, potassium 4.5, BUN and creatinine is 19 and 1.2, glucose 116 nonfasting. Bilirubin is 1.47. ProBNP is 509. TSH is low at 0.27. D-dimer is 0.77. Chest x-ray shows osteoporosis, hyperinflated lungs suggestive of COPD. No pleural effusion or pneumonia noted. ASSESSMENT: 1. Chronic obstructive pulmonary disease exacerbation. 2. Pleurisy, possible recurrent pneumonia. 3. Leukocytosis. 4. Osteoporosis. 5. History of colon cancer, history of lymphoma, hyponatremia. PLAN: The patient will be admitted with IV fluids, updrafts, IV antibiotics and steroids. Further workup pending clinical course. TRANSINT:[id number] Voice Confirmation ID: [id number] DOCUMENT ID: [id number] JEAN-CLAUDE ORTIZ MD at 1216 CC: [id number] DICTATION DATE: 09/12/17935 OPERA SINGER: 09/12/17 1120 ADM IN [place] [id number] [place] [address]
[~2017-09-11 20:25] MED LIST changes: +OMNICEF300 MG PO
[2017-09-11 21:15] LABS: HEMATOCRIT 46.9 % (36.0-48.0); HEMOGLOBIN 15.1 g/dL (12-16); MCH 27.9 pg (26.0-34.0); MCHC 32.2 g/dL (31.0-37.0); MCV 86.5 fL (80.0-100.0); MEAN PLATELET VOLUME 9.9 fL (7.4-10.4); PLATELET COUNT 304 10x3/uL (130-400); RBC 5.42 10x6/uL (4.00-5.40); RDW 15.3 % (11.5-14.5)
[2017-09-11 21:28] LABS: ALBUMIN 3.3 g/dL (3.4-5.0); ALKALINE PHOSPHATASE 86 U/L (46-116); ALT (SGPT) 21 U/L (10-68); BILIRUBIN - TOTAL 1.47 mg/dL (0.2-1.3); CALC OSMOLALITY 267 mosm/kg (275-300); CALCIUM 9.2 mg/dL (8.5-10.1); CARBON DIOXIDE 26.2 mmol/L (21.0-32.0); CHLORIDE - SERUM 98 mmol/L (98-107); CREATININE - SERUM 1.2 mg/dL (0.6-1.3); GLUCOSE 116 mg/dL (74-106); POTASSIUM - SERUM 4.5 mmol/L (3.5-5.1); PROTEIN - SERUM 7.5 g/dL (6.4-8.2); SODIUM 132 mmol/L (136-145); UREA NITROGEN 19 mg/dL (7-18); eGFR NON AFRICAN AMERICAN 47 mL/min (90-120)
[2017-09-11 21:35] LABS: LYMPHOCYTES 6 % (15-50); MONOCYTES 4 % (2-11); NEUTROPHILS 90 % (40-80); PLATELET ESTIMATE NORMAL
[2017-09-11 21:39] LABS: CREATINE KINASE 62 UL (21-215); PRO BNP 509 pg/mL (0-125); THYROID STIMULATING HORMONE 0.27 uIU/mL (0.36-3.74)
[2017-09-11 21:44] LABS: TROPONIN-I < 0.017 ng/mL (0.000-0.060)
[2017-09-11 21:54] VITALS: BP 138/87
[2017-09-12 00:14] VITALS: BP 98/46; BMI 15.1
[2017-09-12 04:00] VITALS: BP 112/67
[2017-09-12 05:06] LABS: ALBUMIN 2.6 g/dL (3.4-5.0); ALKALINE PHOSPHATASE 68 U/L (46-116); ALT (SGPT) 17 U/L (10-68); BILIRUBIN - TOTAL 0.97 mg/dL (0.2-1.3); CALC OSMOLALITY 278 mosm/kg (275-300); CALCIUM 8.4 mg/dL (8.5-10.1); CHLORIDE - SERUM 105 mmol/L (98-107); GLUCOSE 120 mg/dL (74-106); POTASSIUM - SERUM 4.2 mmol/L (3.5-5.1); PROTEIN - SERUM 6.2 g/dL (6.4-8.2); SODIUM 138 mmol/L (136-145); UREA NITROGEN 19 mg/dL (7-18); eGFR NON AFRICAN AMERICAN 88 mL/min (90-120)
[2017-09-12 05:07] LABS: CREATININE - SERUM 0.7 mg/dL (0.6-1.3)
[2017-09-12 05:10] LABS: BASOPHILS 0 % (0-2); EOSINOPHILS 0 % (0-7); HEMATOCRIT 40.5 % (36.0-48.0); IMMATURE GRANULOCYTES 0.4 % (0-5); LYMPHOCYTES 1.9 % (15-50); MCH 27.5 pg (26.0-34.0); MCHC 32.1 g/dL (31.0-37.0); MCV 85.6 fL (80.0-100.0); MONOCYTES 0.9 % (2-11); NEUTROPHILS 96.8 % (40-80); PLATELET COUNT 277 10x3/uL (130-400); RBC 4.73 10x6/uL (4.00-5.40); WBC 25.4 10x3/uL (4.8-10.8)
[2017-09-12 09:24] VITALS: BP 121/62
[2017-09-12 12:40] VITALS: BP 97/70
[2017-09-12 16:39] VITALS: BP 116/63
[2017-09-12 20:00] VITALS: BP 124/61
[2017-09-13 04:00] VITALS: BP 122/59
[2017-09-13 05:28] LABS: BASOPHILS 0 % (0-2); EOSINOPHILS 0 % (0-7); HEMATOCRIT 36.9 % (36.0-48.0); HEMOGLOBIN 11.9 g/dL (12-16); IMMATURE GRANULOCYTES 0.4 % (0-5); LYMPHOCYTES 2.4 % (15-50); MCH 27.4 pg (26.0-34.0); MCHC 32.2 g/dL (31.0-37.0); MCV 84.8 fL (80.0-100.0); MEAN PLATELET VOLUME 9.9 fL (7.4-10.4); MONOCYTES 2.7 % (2-11); NEUTROPHILS 94.5 % (40-80); PLATELET COUNT 267 10x3/uL (130-400); RBC 4.35 10x6/uL (4.00-5.40); WBC 21.8 10x3/uL (4.8-10.8)
[2017-09-13 05:35] LABS: CALC OSMOLALITY 283 mosm/kg (275-300); CALCIUM 7.8 mg/dL (8.5-10.1); CARBON DIOXIDE 26.2 mmol/L (21.0-32.0); CHLORIDE - SERUM 108 mmol/L (98-107); CREATININE - SERUM 0.8 mg/dL (0.6-1.3); GLUCOSE 132 mg/dL (74-106); POTASSIUM - SERUM 4.3 mmol/L (3.5-5.1); SODIUM 140 mmol/L (136-145); UREA NITROGEN 20 mg/dL (7-18); eGFR NON AFRICAN AMERICAN 75 mL/min (90-120)
[2017-09-13 08:55] VITALS: BP 141/61
[2017-09-13 12:26] VITALS: BP 142/59
[2017-09-13 14:58] VITALS: BMI 15.6
[2017-09-13 17:36] VITALS: BP 117/68
[2017-09-13 18:08] VITALS: Ht 160 cm; Wt 40.1 kg
[2017-09-13 20:00] VITALS: BP 142/51
[2017-09-14] VITALS: BP 124/52
[2017-09-14 04:00] VITALS: BP 140/55
[2017-09-14 05:59] LABS: BASOPHILS 0.1 % (0-2); EOSINOPHILS 0 % (0-7); HEMATOCRIT 37.6 % (36.0-48.0); HEMOGLOBIN 11.9 g/dL (12-16); IMMATURE GRANULOCYTES 0.5 % (0-5); LYMPHOCYTES 4.2 % (15-50); MCHC 31.6 g/dL (31.0-37.0); MCV 85.3 fL (80.0-100.0); MEAN PLATELET VOLUME 10.2 fL (7.4-10.4); MONOCYTES 2.9 % (2-11); NEUTROPHILS 92.3 % (40-80); PLATELET COUNT 271 10x3/uL (130-400); RBC 4.41 10x6/uL (4.00-5.40); WBC 17.8 10x3/uL (4.8-10.8)
[2017-09-14 06:20] LABS: CALC OSMOLALITY 281 mosm/kg (275-300); CALCIUM 7.9 mg/dL (8.5-10.1); CARBON DIOXIDE 23.9 mmol/L (21.0-32.0); CHLORIDE - SERUM 109 mmol/L (98-107); CREATININE - SERUM 0.7 mg/dL (0.6-1.3); GLUCOSE 119 mg/dL (74-106); POTASSIUM - SERUM 4.3 mmol/L (3.5-5.1); SODIUM 140 mmol/L (136-145); UREA NITROGEN 19 mg/dL (7-18); eGFR NON AFRICAN AMERICAN 88 mL/min (90-120)
[2017-09-14 08:29] VITALS: BP 127/55
[2017-09-14 12:04] VITALS: BP 128/49
[2017-09-14 15:30] VITALS: BP 149/51
[2017-09-14 20:00] VITALS: BP 158/67
[2017-09-15] VITALS: BP 129/57
[2017-09-15 04:00] VITALS: BP 141/70
[2017-09-15 06:04] LABS: BASOPHILS 0 % (0-2); EOSINOPHILS 0 % (0-7); HEMATOCRIT 37.9 % (36.0-48.0); IMMATURE GRANULOCYTES 0.6 % (0-5); LYMPHOCYTES 7.7 % (15-50); MCH 26.8 pg (26.0-34.0); MCHC 31.7 g/dL (31.0-37.0); MCV 84.6 fL (80.0-100.0); NEUTROPHILS 86.7 % (40-80); PLATELET COUNT 278 10x3/uL (130-400); RBC 4.48 10x6/uL (4.00-5.40)
[2017-09-15 06:14] LABS: WBC 11.6 10x3/uL (4.8-10.8)
[2017-09-15 06:17] LABS: CALC OSMOLALITY 277 mosm/kg (275-300); CALCIUM 7.9 mg/dL (8.5-10.1); CARBON DIOXIDE 28.8 mmol/L (21.0-32.0); CHLORIDE - SERUM 107 mmol/L (98-107); CREATININE - SERUM 0.5 mg/dL (0.6-1.3); GLUCOSE 91 mg/dL (74-106); POTASSIUM - SERUM 3.9 mmol/L (3.5-5.1); SODIUM 138 mmol/L (136-145); UREA NITROGEN 17 mg/dL (7-18); eGFR NON AFRICAN AMERICAN > 90 mL/min (90-120)
[2017-09-15] MEDS ORDERED: PREDNISONE20 MG PO (08:06)
[2017-09-15 08:20] VITALS: BP 117/60
[2017-09-15 11:15] VITALS: BP 113/44
[2017-09-15 14:50] VITALS: BP 136/82
== END 2017-09-15 16:26 | disposition home or self-care (01) | DRG 191 ==
LOC: D.ER 20:25 → D.M2 22:25
PROVIDERS: Family Medicine
DX: J43.9 Emphysema, unspecified (principal); E46 Unspecified protein-calorie malnutrition; Z68.1 Body mass index [BMI] 19.9 or less, adult; M81.0 Age-related osteoporosis without current pathological fracture; R09.1 Pleurisy; D72.829 Elevated white blood cell count, unspecified; Z85.038 Personal history of other malignant neoplasm of large intestine; Z72.0 Tobacco use

== ENCOUNTER 2018-04-22 15:14 | Inpatient (IN) | payer MEDICARE, OTHER ==
[~2018-04-22] VITALS: Ht 160 cm; Wt 40.4 kg
[2018-04-22 16:01] VITALS: BP 140/73
--- NOTE | 2018-04-22 16:27 | NUR ---
PT ARRIVED TO FLOOR VIA WHEELCHAIR FROM ADMISSIONS. ASSESSMENT PERFORMED. 20G PIV INSERTED TO PT RIGHT FA X1 ATTEMPT, PT TOLERATED WELL. 02 AT 2L VIA NC NOTED. PT WEIGHED USING STANDING SCALE, VSS AND WNL. PT ONLY BROUGHT HER BLACK FLIP PHONE AND HER GLASSES WITH HER, ASSISTED PT OUT OF HER STREET CLOTHES INTO A GOWN. DENIES ANY PAIN AT THIS TIME, DENIES ANY OTHER NEEDS AT THIS TIME, WILL CONT TO FOLLOW PLAN OF CARE
[2018-04-22 19:58] VITALS: BP 119/58
--- NOTE | 2018-04-22 21:59 | NUR ---
INITIAL ROUNDS COMPLETED AT 1915 HRS. PT DENIED ANY DISCOMFORT. ASSESSMENT COMPLETED AT 1945 HRS. VSS. PT ALERT AND ORIENTED TO PERSON, PLCAE AND TIME. MORALES. IV TO RFA SL. LUNGS DIMINISHED IN BASES BILAT. PM MEDS GIVEN WHILE FAMILY AT BEDSIDE. PT CURRENTLY WATCHING TV, NO DISTRESS NOTED. SR UP X2, CALL LIGHT WITHIN REACH.
--- NOTE | 2018-04-22 23:31 | NUR ---
PT RESTING WITH EYES CLOSED. RESP EVEN AND REGULAR. SR UP X2, CALL LIGHT WITHIN REACH.
[2018-04-22 23:35] VITALS: BP 121/53
--- NOTE | 2018-04-23 01:54 | NUR ---
PT RESTING WITH EYES CLOSED. RESP EVEN AND REGULAR. SR UP X2, CALL LIGHT WITHIN REACH.
--- NOTE | 2018-04-23 04:17 | NUR ---
PT RESTING WITH EYES CLOSED. RESP EVEN AND REGULAR. SR UP X2, CALL LIGHT WITHIN REACH.
[2018-04-23 05:10] VITALS: BP 127/57
[2018-04-23 05:34] LABS: BASOPHILS 0.1 % (0-2); EOSINOPHILS 0 % (0-7); HEMATOCRIT 41.8 % (36.0-48.0); HEMOGLOBIN 13.5 g/dL (12-16); IMMATURE GRANULOCYTES 2.3 % (0-5); LYMPHOCYTES 9.7 % (15-50); MCH 28.4 pg (26.0-34.0); MCHC 32.3 g/dL (31.0-37.0); MCV 87.8 fL (80.0-100.0); MONOCYTES 0.7 % (2-11); NEUTROPHILS 87.2 % (40-80); PLATELET COUNT 289 10x3/uL (130-400); RBC 4.76 10x6/uL (4.00-5.40); RDW 15.4 % (11.5-14.5); WBC 7.4 10x3/uL (4.8-10.8)
[2018-04-23 05:40] LABS: CALC OSMOLALITY 282 mosm/kg (275-300); CALCIUM 8.3 mg/dL (8.5-10.1); CARBON DIOXIDE 20.6 mmol/L (21.0-32.0); CHLORIDE - SERUM 107 mmol/L (98-107); CREATININE - SERUM 0.8 mg/dL (0.6-1.3); GLUCOSE 117 mg/dL (74-106); POTASSIUM - SERUM 4.4 mmol/L (3.5-5.1); SODIUM 141 mmol/L (136-145); UREA NITROGEN 16 mg/dL (7-18); eGFR NON AFRICAN AMERICAN 75 mL/min (90-120)
--- NOTE | 2018-04-23 05:53 | NUR ---
VSS THROUGHOUT NIGHT. PT DENIED ANY DISCOMFORT. NEEDS MET; WILL CONTINUE TO MONITOR.
--- NOTE | 2018-04-23 07:30 | NUR ---
ASSESSMENT COMPLETED. ALERT AND ORIENTED. O2 AT 2 L/M PER NC. LUNGS DIMISHED. PT GETS UP BY HERSELF AND WALKS IN HALLWAY. SR UP WITH CALL LIGHT IN REACH.
[2018-04-23 09:13] VITALS: Ht 160 cm; Wt 40.4 kg
[2018-04-23 09:30] VITALS: BP 118/40
[2018-04-23 12:26] VITALS: BP 120/47
--- NOTE | 2018-04-23 14:04 | NUR ---
LYING QUIETLY WITH VISITOR AT BEDSIDE. DENIES ANY NEEDS. O2 AT 2 L/M PER NC. WILL MONITOR
--- NOTE | 2018-04-23 16:13 | NUR ---
AGREE WITH FIRER RETORT ASSESSMENT
[2018-04-23 17:16] VITALS: BP 120/51
--- NOTE | 2018-04-23 18:03 | NUR ---
UP ON SIDE OF BED FOR DIET. DENIES ANY NEEDS. WILL MONITOR
[2018-04-23 19:55] VITALS: BP 118/51
--- NOTE | 2018-04-23 22:34 | NUR ---
INITIAL ROUNDS COMPLETED AT 1910 HRS. PT DENIED ANY DISCOMFORT. ASSESSMENT COMPLETED AT 1945 HRS. VSS. IV TO RFA WITH ZITHROMYCIN INFUSING. O2 2LNC PRN. LUNGS DIMINISHED IN BASES BILAT. MORALES. PT ALERT AND ORIENTED TO PERSON, PLACE AND TIME. PM MEDS GIVEN PER ORDERS. PT CURRENTLY WATCHING TV WILL CONTINUE TO MONITOR. SR UP X2, CALL LIGHT WITHIN REACH.
[2018-04-23 23:55] VITALS: BP 118/51
--- NOTE | 2018-04-24 00:30 | NUR ---
PT RESTING WITH EYES CLOSED. RESP EVEN AND REGULAR. SR UP X2, CALL LIGHT WITHIN REACH.
--- NOTE | 2018-04-24 03:10 | NUR ---
PT RESTING WITH EYES CLOSED. RESP EVEN AND REGULAR. SR UP X2, CALL LIGHT WITHIN REACH.
[2018-04-24 03:55] VITALS: BP 125/46; BP 134/77
--- NOTE | 2018-04-24 04:32 | NUR ---
PT RESTING WITH EYES CLOSED. RESP EVEN AND REGULAR. SR UP X2, CALL LIGHT WITHIN REACH.
[2018-04-24 06:29] LABS: CALC OSMOLALITY 291 mosm/kg (275-300); CALCIUM 8.1 mg/dL (8.5-10.1); CARBON DIOXIDE 21.6 mmol/L (21.0-32.0); CHLORIDE - SERUM 111 mmol/L (98-107); CREATININE - SERUM 0.8 mg/dL (0.6-1.3); GLUCOSE 126 mg/dL (74-106); POTASSIUM - SERUM 4.5 mmol/L (3.5-5.1); SODIUM 144 mmol/L (136-145); UREA NITROGEN 20 mg/dL (7-18); eGFR NON AFRICAN AMERICAN 75 mL/min (90-120)
--- NOTE | 2018-04-24 06:31 | NUR ---
VSS THORUGHOUT NIGHT. PT DENIED ANY DISCOMFORT. NEEDS MET; WILL CONTINUE TO MONITOR.
[2018-04-24 07:06] LABS: BASOPHILS 0.1 % (0-2); EOSINOPHILS 0 % (0-7); HEMATOCRIT 39.5 % (36.0-48.0); HEMOGLOBIN 12.6 g/dL (12-16); IMMATURE GRANULOCYTES 0.6 % (0-5); LYMPHOCYTES 4.2 % (15-50); MCH 28.5 pg (26.0-34.0); MCHC 31.9 g/dL (31.0-37.0); MCV 89.4 fL (80.0-100.0); MEAN PLATELET VOLUME 10.5 fL (7.4-10.4); MONOCYTES 1.9 % (2-11); NEUTROPHILS 93.2 % (40-80); PLATELET COUNT 294 10x3/uL (130-400); RBC 4.42 10x6/uL (4.00-5.40); RDW 15.5 % (11.5-14.5)
[2018-04-24 07:10] LABS: WBC 19.7 10x3/uL (4.8-10.8)
--- NOTE | 2018-04-24 07:21 | NUR ---
SITTING UP RIGHT IN BED, AWAKE AND ALERT, ON ROOM AIR, RIGHT FOREARM IV SALINE LOCKED, PATENT, UP AD NANCY, DENIES ANY CURRENT NEEDS OR DISCOMFORTS, BED LOWERED AND LOCKED, CALL LIGHT WITHIN REACH. CPOC
[2018-04-24 08:51] VITALS: BP 133/47
--- NOTE | 2018-04-24 14:25 | NUR ---
SITTING UP IN BED, FAMILY MEMBERS PRESENT IN ROOM, EVEN UNLABORED BREATHING, ON ROOM AIR, DENIES ANY CURRENT NEEDS OR DISCOMFORTS, BED LOWERED AND LOCKED, CALL LIGHT WITHIN REACH CPOC
[2018-04-24 14:43] VITALS: BP 130/80
[2018-04-24 19:55] VITALS: BP 134/33
--- NOTE | 2018-04-25 02:33 | NUR ---
I have reviewed this patient and I concur with the Shift Assessment completed by the Licensed Practical Nurse today this shift.
[2018-04-25 03:50] VITALS: BP 127/60
--- NOTE | 2018-04-25 07:15 | NUR ---
AM ROUNDS DONE. PT IS SITTING UP IN BED. ALERT AND ORIENTED. WALKER RIVER. RIGHT FA 20G IV SL. ROOM AIR. PT REQUESTING ICE WATER. BROUGHT PT ICE WATER. PT HAS NO FURTHER NEEDS AT THIS TIME. PT STATES SHE IS OCCASIONALLY COUGHING UP CLEAR SPUTUM BUT NOT LIEK SHE WAS. BED LOW. CL IN REACH. WILL CONTINUE TO MONITOR.
[2018-04-25 08:00] LABS: BASOPHILS 0.1 % (0-2); EOSINOPHILS 0 % (0-7); HEMATOCRIT 38.8 % (36.0-48.0); HEMOGLOBIN 12.3 g/dL (12-16); IMMATURE GRANULOCYTES 0.6 % (0-5); LYMPHOCYTES 6.9 % (15-50); MCH 28.7 pg (26.0-34.0); MCHC 31.7 g/dL (31.0-37.0); MCV 90.4 fL (80.0-100.0); MEAN PLATELET VOLUME 9.7 fL (7.4-10.4); MONOCYTES 5.7 % (2-11); NEUTROPHILS 86.7 % (40-80); PLATELET COUNT 269 10x3/uL (130-400); RBC 4.29 10x6/uL (4.00-5.40); RDW 15.6 % (11.5-14.5); WBC 15.7 10x3/uL (4.8-10.8)
[2018-04-25 08:04] LABS: CALC OSMOLALITY 282 mosm/kg (275-300); CALCIUM 7.6 mg/dL (8.5-10.1); CARBON DIOXIDE 24.6 mmol/L (21.0-32.0); CHLORIDE - SERUM 107 mmol/L (98-107); CREATININE - SERUM 0.7 mg/dL (0.6-1.3); GLUCOSE 98 mg/dL (74-106); POTASSIUM - SERUM 4.2 mmol/L (3.5-5.1); SODIUM 141 mmol/L (136-145); UREA NITROGEN 18 mg/dL (7-18); eGFR NON AFRICAN AMERICAN 88 mL/min (90-120)
[2018-04-25 08:28] VITALS: BP 137/56
[2018-04-25 11:40] VITALS: BP 126/63
--- NOTE | 2018-04-25 12:02 | NUR ---
I have reviewed this patient and I concur with the Shift Assessment completed by the Licensed Practical Nurse today this shift.
[2018-04-25] MEDS ORDERED: PREDNISONE20 MG PO (13:25)
[2018-04-25 14:55] VITALS: BP 122/68
--- NOTE | 2018-04-25 15:44 | NUR ---
RIGHT FA 20G IV DC'D WITH CATH INTACT. DISCHARGE TEACHING DONE WITH PT AND INSTRUCTIONS GIVEN TO PT. PT HAS NO FURTHER QUESTIONS AT THIS TIME. PT STATES HER SON WILL BE THE ONE TO PICK HER UP BUT SHE DOESN'T KNOW WHEN HE'LL GET OFF OF WORK.
--- NOTE | 2018-04-25 17:37 | MORECARE ---
CASE MANAGEMENT DISCHARGE SUMMARY PATIENT: ERA HOGAN UNIT: [id number] ADM DATE: 04/22/18 AGE: 72 : [birth year] SEX: F ROOM/BED: D.8278 AUTHOR: EFREN,DOC PHYSICIAN: REFERRING PHYSICIAN: DESI KRAUSE MD DATE OF SERVICE: 04/25/18 Discharge Plan Patient Name: ERA HOGAN Facility: [facility]:[place] : 1945 Planned Disposition: Home Anticipated Discharge Date: 04/25/18 Discharge Date: Expected LOS: 3 Initial Reviewer: [id number] Initial Review Date: 04/25/2018 Generated: 04/25/18 6:37 pm Comments DCP- Discharge Planning Updated by [email or web address]: Thomas Holloway on 04/25/18 4:[address] Patient Name: ERA HOGAN Admission Status: Urgent Accout number: [id number] Admission Date: 04-22-2018 : 1945 Admission Diagnosis: Attending: DESI KRAUSE Current LOS: 3 Anticipated DC Date: 04-25-2018 Planned Disposition: Home Primary Insurance: MEDICARE A & B Discharge Planning Comments: CM MET WITH PT IN ROOM TO DISCUSS DISCHARGE PLANNING AND NEEDS. PT REPORTS LIVING AT HOME INDEPENDENTLY WITH HER ADULT SON. PT HAS NEBULIZER WITH NO MEDICAL EQUIPMENT PROVIDER PREFERENCE. PT HAS NO OUTSIDE SERVICES ASSISTING IN THE HOME. CM DISCUSSED AVAILABILITY OF HOME HEALTH, REHAB SERVICES AND MEDICAL EQUIPMENT. PT DENIES DISCHARGE NEEDS, REPORTS HER SON WILL PICK HER UP FOR DISCHARGE HOME. IMPORTANT MESSAGE FROM MEDICARE PROVIDED AND EXPLAINED. IMPORT EXPORT AGENT NURSE NOTIFIED. Route Salesman: Thomas Holloway DCPIA - Discharge Planning Initial Assessment Updated by [email or web address]: Thomas Holloway on 04/25/18 5:31 pm * Is the patient Alert and Oriented? Yes * How many steps to enter\exit or inside your home? NONE * PCP DR. MALLORY * Pharmacy [facility] * Preadmission Environment Home with Family * ADLs Independent * Equipment Nebulizer * Other Equipment UNKNOWN PROVIDER * List name and contact numbers for known caregivers / representatives who currently or will assist patient after discharge: REYES HOGAN, SON, * Verbal permission to speak to the caregivers and representatives has been obtained from the patient. N/A * Community resources currently utilized None * Please name any agencies selected above. NONE * Additional services required to return to the preadmission environment? No * Can the patient safely return to the preadmission environment? Yes * Has this patient been hospitalized within the prior 30 days at any hospital? No Coverage Notice Reviewer: [id number] Renato Holloway Notice Issued Date-Time: 04/25/2018 12:08 Notice Type: IM Discharge Notice Notice Delivered To: Patient Relationship to Patient: Tamale Machine Feeder Name: Delivery Method: HAND - Hand Delivered Naatlya Days: Prior Verbal Notification: Recipient Understood Notice: Yes Recipient Signature: Yes Med Rec Note Co-signed by Attending: Coverage Notice Comment: Patient Name: ERA HOGAN Page [phone] at 1737 All edits/amendments must be made on the electronic document DICTATION DATE: 04/25/181736 MEMBERSHIP COUNSELOR: WENDY 04/25/181736 RPT#: [id number] DC DATE: STATUS: ADM IN [facility] [address] [place] [address] END OF REPORT
--- NOTE | 2018-04-25 18:39 | NUR ---
PT TAKEN DOWN VIA WC BY PEARL GLUE OPERATOR ACCOMPANIED BY PEARL GLUE OPERATOR.
== END 2018-04-25 18:40 | disposition home or self-care (01) | DRG 192 ==
LOC: D.M2 15:14
PROVIDERS: ADMIT Family Medicine; ATTEND Family Medicine
DX: J44.1 Chronic obstructive pulmonary disease with (acute) exacerbation (principal); Z87.891 Personal history of nicotine dependence; I25.2 Old myocardial infarction; Z85.72 Personal history of non-Hodgkin lymphomas

== ENCOUNTER 2018-06-14 21:17 | Emergency (ER) | payer MEDICARE, OTHER ==
[~2018-06-14] VITALS: Ht 160 cm; Wt 40.9 kg
[2018-06-14 21:24] VITALS: Ht 160 cm; Wt 40.9 kg
[2018-06-14 21:57] LABS: HEMATOCRIT 45.5 % (36.0-48.0); HEMOGLOBIN 14.8 g/dL (12-16); MCH 28.4 pg (26.0-34.0); MCHC 32.5 g/dL (31.0-37.0); MCV 87.3 fL (80.0-100.0); MEAN PLATELET VOLUME 9.8 fL (7.4-10.4); PLATELET COUNT 287 10x3/uL (130-400); RBC 5.21 10x6/uL (4.00-5.40); RDW 15.4 % (11.5-14.5); WBC 12.4 10x3/uL (4.8-10.8)
[2018-06-14 22:21] LABS: ALBUMIN 3.7 g/dL (3.4-5.0); ALKALINE PHOSPHATASE 59 U/L (46-116); ALT (SGPT) 26 U/L (10-68); BILIRUBIN - TOTAL 0.63 mg/dL (0.2-1.3); CALC OSMOLALITY 282 mosm/kg (275-300); CALCIUM 9.3 mg/dL (8.5-10.1); CARBON DIOXIDE 25.8 mmol/L (21.0-32.0); CHLORIDE - SERUM 105 mmol/L (98-107); CREATININE - SERUM 0.8 mg/dL (0.6-1.3); GLUCOSE 91 mg/dL (74-106); POTASSIUM - SERUM 4.8 mmol/L (3.5-5.1); PROTEIN - SERUM 7.1 g/dL (6.4-8.2); SODIUM 141 mmol/L (136-145); UREA NITROGEN 18 mg/dL (7-18); eGFR NON AFRICAN AMERICAN 75 mL/min (90-120)
[2018-06-14 22:22] LABS: APTT 21.4 SECONDS (22.8-39.4); INR 0.87 (0.85-1.17); PROTIME 11.3 SECONDS (11.6-15.0)
[2018-06-14 22:23] LABS: D-DIMER-QUANTITATIVE 1.07 ug/mLFEU (0.20-0.54)
[2018-06-14 22:33] LABS: CKMB 1.9 U/L (0.0-3.6); CREATINE KINASE 71 UL (21-215); PRO BNP 184 pg/mL (0-125); TROPONIN-I < 0.017 ng/mL (0.000-0.060)
[2018-06-14 22:40] LABS: EOSINOPHILS 1 % (0-7); LYMPHOCYTES 26 % (15-50); MONOCYTES 6 % (2-11); NEUTROPHILS 66 % (40-80); PLATELET ESTIMATE NORMAL
[2018-06-15] MEDS ORDERED: DOXYCYCLINE HY100 M2 PO (00:57)
[2018-06-15 01:51] VITALS: BP 124/48
== END 2018-06-15 01:51 | disposition home or self-care (01) ==
LOC: D.ER 21:17
PROVIDERS: Family Medicine
DX: R06.02 Shortness of breath (principal); J44.1 Chronic obstructive pulmonary disease with (acute) exacerbation; J18.9 Pneumonia, unspecified organism

== ENCOUNTER 2018-11-11 16:24 | Inpatient (IN) | payer MEDICARE, OTHER ==
[~2018-11-11] VITALS: Ht 162.6 cm; Wt 36.3 kg
[~2018-11-11 16:24] MED LIST changes: +DOXYCYCLINE HY100 M2 PO
[2018-11-11 19:00] VITALS: BP 128/62
--- NOTE | 2018-11-11 19:09 | NUR ---
PATIENT DIRECT ADMIT WITH COPD, INCREASED WEAKNESS AND ARTHRITIS PAIN. PATIENT IS ALERT AND ORIENTED, IV STARTED TO RIGHT FOREARM 24G DUE TO PATIENTS SMALL VEINS. SON IS WITH PATIENT AND IS VERY DEMANDING. EXPLAINED TO SON AND PATINET THAT SHE IS HIGH FALL RISK DUE TO WEAKNESS AND SHE IS TO CALL FOR ASSISTANCE WITH BSC.
[2018-11-11 20:00] VITALS: BP 132/63
--- NOTE | 2018-11-11 23:59 | NUR ---
PT RESTING IN BED. EYES CLOSED. NO SIGNS OF DISTRESS. BREATHING EVEN AND UNLABORED. IV SITE RT WRIST DRESSING CLEAN DRY AND INTACT. NO SIGNS OF INFECTION. BOWEL SOUNDS ACTIVE. SKIN CLEAN DRY AND INTACT. WILL CONTINUE PLAN OF CARE. CALL LIGHT IN REACH. BED LOWERED AND LOCKED. BED RAILS UPX2.
[2018-11-12] VITALS: BP 143/80
--- NOTE | 2018-11-12 03:00 | NUR ---
I have reviewed this patient and I concur with the Shift Assessment completed by the Licensed Practical Nurse today this shift.
[2018-11-12 04:00] VITALS: BP 116/61
[2018-11-12 06:31] LABS: BASOPHILS 0 % (0-2); EOSINOPHILS 0 % (0-7); HEMATOCRIT 40.5 % (36.0-48.0); HEMOGLOBIN 12.7 g/dL (12-16); LYMPHOCYTES 20.2 % (15-50); MCH 28.2 pg (26.0-34.0); MCHC 31.4 g/dL (31.0-37.0); MEAN PLATELET VOLUME 10.1 fL (7.4-10.4); MONOCYTES 1.2 % (2-11); NEUTROPHILS 77.6 % (40-80); RDW 15.7 % (11.5-14.5); WBC 4.2 10x3/uL (4.8-10.8)
[2018-11-12 06:38] LABS: PLATELET COUNT 372 10x3/uL (130-400)
[2018-11-12 06:42] LABS: CALC OSMOLALITY 281 mosm/kg (275-300); CALCIUM 8.3 mg/dL (8.5-10.1); CHLORIDE - SERUM 107 mmol/L (98-107); CREATININE - SERUM 0.4 mg/dL (0.6-1.3); POTASSIUM - SERUM 4.2 mmol/L (3.5-5.1); SODIUM 141 mmol/L (136-145); UREA NITROGEN 7 mg/dL (7-18); eGFR NON AFRICAN AMERICAN > 90 mL/min (90-120)
[2018-11-12 06:43] LABS: GLUCOSE 158 mg/dL (74-106)
--- NOTE | 2018-11-12 07:30 | NUR ---
REC'D IN BED AWAKE AND ALERT. RESP EVEN AND UNLABORED WITH NO DISTRESS NOTED. CAN EXPRESS NEEDS AND WANTS. NO C/O NOTED OR VOICED. ASSESSMENT COMPLETED. C/L IN REACH AT BEDSIDE.
[2018-11-12 08:46] VITALS: BP 107/41
[2018-11-12 13:54] VITALS: BP 134/54
[2018-11-12 16:47] VITALS: BP 113/92
--- NOTE | 2018-11-12 18:45 | NUR ---
I have reviewed this patient and I concur with the Shift Assessment completed by the Licensed Practical Nurse today this shift.
--- NOTE | 2018-11-12 19:35 | NUR ---
PT SITTING UP IN BED WITHOUT DISTRESS, AOX4. STATES PAIN IN BACK 5/10. GAVE ULTRAM ORDERED. IV RIGHT WRIST FLUSHES EASILY, NO REDNESS OR SWELLING AT INSERTION SITE. SCDS ON. PT REQUESTED AND GIVEN COFFEE, COLA AND CRACKERS. DENIES OTHER NEEDS. AT THIS TIME. CL IN REACH, WILL CTM
[2018-11-12 19:46] VITALS: BP 115/73
[2018-11-13] VITALS: BP 140/72
[2018-11-13 04:00] VITALS: BP 116/71
[2018-11-13 06:59] LABS: BASOPHILS 0 % (0-2); EOSINOPHILS 0 % (0-7); HEMATOCRIT 40.8 % (36.0-48.0); HEMOGLOBIN 12.5 g/dL (12-16); IMMATURE GRANULOCYTES 0.4 % (0-5); LYMPHOCYTES 6.4 % (15-50); MCH 27.7 pg (26.0-34.0); MCHC 30.6 g/dL (31.0-37.0); MCV 90.3 fL (80.0-100.0); MONOCYTES 2.1 % (2-11); NEUTROPHILS 91.1 % (40-80); PLATELET COUNT 380 10x3/uL (130-400); RBC 4.52 10x6/uL (4.00-5.40); RDW 15.7 % (11.5-14.5)
[2018-11-13 07:05] LABS: WBC 14.4 10x3/uL (4.8-10.8)
--- NOTE | 2018-11-13 07:22 | NUR ---
RESTING IN BED WITH EYES CLOSED, NO S/S OF DISTRESS. IV LOCATED TO RIGHT WRIST RUNNING KVO. EASILY AROUSED TO SPEECH, DENIES NEEDS AT THIS TIME, WILL CONT TO MONITOR.
[2018-11-13 07:24] LABS: CALCIUM 8.4 mg/dL (8.5-10.1); CARBON DIOXIDE 26.5 mmol/L (21.0-32.0); CHLORIDE - SERUM 109 mmol/L (98-107); GLUCOSE 147 mg/dL (74-106); SODIUM 143 mmol/L (136-145)
[2018-11-13 07:29] LABS: CALC OSMOLALITY 286 mosm/kg (275-300); CREATININE - SERUM 0.6 mg/dL (0.6-1.3); UREA NITROGEN 10 mg/dL (7-18); eGFR NON AFRICAN AMERICAN > 90 mL/min (90-120)
[2018-11-13 09:06] VITALS: BP 135/66
[2018-11-13 12:52] VITALS: BP 136/58
[2018-11-13 15:49] VITALS: BP 113/42
[2018-11-13 20:00] VITALS: BP 138/69
--- NOTE | 2018-11-13 20:00 | NUR ---
ALERT SITTING UP IN BED READING BOOK, DENIES PAIN OR NEEDS AT THIS TIME, SEE ASSESSMENT CALL LIGHT IN REACH,
--- NOTE | 2018-11-13 21:30 | NUR ---
IV LEAKING AT SITE, DC'D AND RESITED TO RIGHT FOREARM WITH 24G X 1 ATTTEMPT
--- NOTE | 2018-11-13 21:30 | NUR ---
SMALL SKIN TEAR NOTED UNDER TRANSPARENT DRESSING WHEN IV REMOVED CLEANED AND TEGADERM APPLIED
[2018-11-14] VITALS: BP 134/80
--- NOTE | 2018-11-14 02:40 | NUR ---
RECIEVED TO ROOM VIA STRETCHER FROM ER ALERT AND ORIENTIATED, C/O LOWER ABD PAIN HAS HX OF DIVERTICULTIS, BLOODY STOOL NOTED TONIGHT PRIOR COMING TO ER. ORIENTIATED TO ROOM CALL LIGHT IN REACH SEE ASSESSMENT
[2018-11-14 04:00] VITALS: BP 136/69
[2018-11-14 06:15] LABS: BASOPHILS 0 % (0-2); EOSINOPHILS 0 % (0-7); HEMATOCRIT 38.3 % (36.0-48.0); HEMOGLOBIN 11.9 g/dL (12-16); IMMATURE GRANULOCYTES 0.7 % (0-5); LYMPHOCYTES 6.6 % (15-50); MCH 28.2 pg (26.0-34.0); MCHC 31.1 g/dL (31.0-37.0); MCV 90.8 fL (80.0-100.0); MEAN PLATELET VOLUME 10.1 fL (7.4-10.4); MONOCYTES 2.5 % (2-11); NEUTROPHILS 90.2 % (40-80); PLATELET COUNT 363 10x3/uL (130-400); RBC 4.22 10x6/uL (4.00-5.40); RDW 15.6 % (11.5-14.5); WBC 11.5 10x3/uL (4.8-10.8)
[2018-11-14 06:28] LABS: CALC OSMOLALITY 285 mosm/kg (275-300); CALCIUM 8.3 mg/dL (8.5-10.1); CHLORIDE - SERUM 109 mmol/L (98-107); CREATININE - SERUM 0.5 mg/dL (0.6-1.3); GLUCOSE 109 mg/dL (74-106); POTASSIUM - SERUM 4.3 mmol/L (3.5-5.1); SODIUM 144 mmol/L (136-145); UREA NITROGEN 8 mg/dL (7-18); eGFR NON AFRICAN AMERICAN > 90 mL/min (90-120)
--- NOTE | 2018-11-14 08:00 | NUR ---
ASSESSMENT PER FLOW SHEET. PT IS WITHOUT DISTRESS.FALL PREVENTION IN PLACE.CALL LIGHT IN REACH
[2018-11-14 08:29] VITALS: BP 125/59
--- NOTE | 2018-11-14 12:29 | NUR ---
REMAINS WITHOUT NEEDS.
[2018-11-14 12:51] VITALS: BP 145/68
[2018-11-14 16:42] VITALS: BP 127/58
--- NOTE | 2018-11-14 17:22 | MORECARE ---
CASE MANAGEMENT DISCHARGE SUMMARY PATIENT: ERA HOGAN UNIT: [id number] ADM DATE: 11/11/18 AGE: 73 : [birth year] SEX: F ROOM/BED: D.2213 AUTHOR: RAVI SCHWARTZ PHYSICIAN: REFERRING PHYSICIAN: DESI KRAUSE MD DATE OF SERVICE: 11/14/18 Discharge Plan Patient Name: ERA HOGAN Facility: [facility]:[place] : 1945 Planned Disposition: Home Hlth Svc w Plan Readm Anticipated Discharge Date: Discharge Date: Expected LOS: Initial Reviewer: [email or web address] Initial Review Date: 11/14/2018 Generated: 11/14/18 6:22 pm DCP- Discharge Planning Updated by [email or web address]: Kyara Sherman on 11/14/18 4:[address] Patient Name: ERA HOGAN Admission Status: Urgent Accout number: [id number] Admission Date: 11-11-2018 : 1945 Admission Diagnosis:SHORTNESS OF BREATH Attending: DESI KRAUSE Current LOS: 3 Anticipated DC Date: Planned Disposition: Home Hlth Svc w Plan Readm Primary Insurance: MEDICARE A & B Discharge Planning Comments: CM MET WITH PATIENT AND SON ABOUT DC PLANNING/NEEDS. STATES PLANS TO DC TO HOME WITH SON AND RESUME [facility]. CM WILL FOLLOW AND ASSIST. [employer] Superintendent: Kyara Sherman DCPIA - Discharge Planning Initial Assessment Updated by [email or web address]: Kyara Sherman on 11/14/18 5:15 pm * Is the patient Alert and Oriented? Yes * Preadmission Environment Home with Family * ADLs Independent * Equipment Bedside Commode * Other Equipment WALKER, NEBS * List name and contact numbers for known caregivers / representatives who currently or will assist patient after discharge: REYES CHAN, * Community resources currently utilized Home Health * Please name any agencies selected above. [facility] * Additional services required to return to the preadmission environment? No * Can the patient safely return to the preadmission environment? Yes * Has this patient been hospitalized within the prior 30 days at any hospital? No Patient Name: ERA HOGAN Page [phone] at 1722 All edits/amendments must be made on the electronic document DICTATION DATE: 11/14/181721 FULL STACK PYTHON DEVELOPER: WENDY 11/14/181721 RPT#: [id number] DC DATE: STATUS: ADM IN [facility] [address] [place] [address] END OF REPORT
[2018-11-14 20:00] VITALS: BP 131/59
--- NOTE | 2018-11-14 20:50 | NUR ---
SITTING UP IN BED. ALERT AND ORIENTED X4. PT IS EMACIATED. GEN WEAKNESS NOTED. C/O PAIN IN BACK 7 ON PAIN SCALE BUT DENIES NEED FOR PAIN MED AT THIS TIME. HEATING PAD IN USE TO BACK. RESP IRREG. SOB WITH EXERTION. NONPROD COUGH NOTED. HEALING STAGE 2 NOTED TO COCCYX. BRUISES NOTED TO BUE. SKIN IS THIN AND FRAGILE. NS @ 10 ML/HR INFUSING IN RT FOREARM WITHOUT DIFF. SR ELEVATED X2. CL IN REACH. AMB WITH WALKER WITH ASSIST X1. BED ALARM IN USE FOR PT SAFETY.
[2018-11-15] VITALS (7 sets, daily range): BP systolic 107–147; BP diastolic 48–72; Ht 162.6 cm; Wt 36.3 kg
--- NOTE | 2018-11-15 01:25 | NUR ---
ASSISTED UP TO BSC TO VOID AND BACK TO BED. HEATING PAD TO BACK. MEDICATED WITH ULTRAM FOR C/O BACK PAIN. SR ELEVATED X2. CL IN REACH. BED ALARM ON FOR PT SAFETY.
--- NOTE | 2018-11-15 03:29 | NUR ---
LYING IN BED WITH EYES CLOSED. HAS RESTED WELL SINCE ULTAM GIVEN. BED ALARM ON. CL IN REACH.
--- NOTE | 2018-11-15 08:00 | NUR ---
ASSESSMENT PER FLOW SHEET. PT IS WITHOUT DISTRESS.FALL PREVENTION IN PLACE.DOOR OPEN
--- NOTE | 2018-11-15 19:01 | NUR ---
PT REMAINS WITHOUT DISTRESS.FALL PREVENTION IN PLACE.CONT PLAN OF CARE
--- NOTE | 2018-11-15 22:01 | NUR ---
MEDICATED WITH ULTRAM FOR C/O BACK PAIN. ALERT AND ORIENTED X4. AMB WITH ASSIST X1 TO BSC. PT IS VERY EMACIATED AND WEAK. RED, BALD AREA NOTED TO TOP OF HEAD WITH SCABBING. BRUISES NOTED TO BUE AND BLE. SKIN IS THIN AND FRAGILE. NS @ 10 MLHR INFUSING IN RT FOREARM. BED ALARM IN USE FOR PT SAFETY. CL IN REACH.
[2018-11-16 01:02] VITALS: BP 136/61
--- NOTE | 2018-11-16 03:40 | NUR ---
HAS RESTED WELL TONIGHT. UP TO BR TO VOID A FEW TIMES. NO DISTRESS. CL IN REACH.
[2018-11-16 04:58] VITALS: BP 146/46
[2018-11-16 06:38] LABS: CALC OSMOLALITY 279 mosm/kg (275-300); CALCIUM 7.9 mg/dL (8.5-10.1); CARBON DIOXIDE 30.4 mmol/L (21.0-32.0); CHLORIDE - SERUM 107 mmol/L (98-107); CREATININE - SERUM 0.4 mg/dL (0.6-1.3); GLUCOSE 98 mg/dL (74-106); POTASSIUM - SERUM 3.9 mmol/L (3.5-5.1); SODIUM 141 mmol/L (136-145); UREA NITROGEN 9 mg/dL (7-18); eGFR NON AFRICAN AMERICAN > 90 mL/min (90-120)
[2018-11-16 07:53] LABS: BASOPHILS 0.1 % (0-2); EOSINOPHILS 0.1 % (0-7); HEMATOCRIT 37.6 % (36.0-48.0); HEMOGLOBIN 11.7 g/dL (12-16); IMMATURE GRANULOCYTES 1.5 % (0-5); LYMPHOCYTES 10.4 % (15-50); MCH 27.9 pg (26.0-34.0); MCHC 31.1 g/dL (31.0-37.0); MCV 89.7 fL (80.0-100.0); MEAN PLATELET VOLUME 10.4 fL (7.4-10.4); MONOCYTES 4.4 % (2-11); NEUTROPHILS 83.5 % (40-80); PLATELET COUNT 343 10x3/uL (130-400); RBC 4.19 10x6/uL (4.00-5.40); RDW 15.4 % (11.5-14.5); WBC 8.9 10x3/uL (4.8-10.8)
--- NOTE | 2018-11-16 08:00 | NUR ---
PATIENT IN BED WITH IV INTACT. NO COMPLAINTS OR SIGNS OF DISTRESS. FAMILY AT BEDSIDE. CALL LIGHT WITHIN REACH.
[2018-11-16 08:45] VITALS: BP 146/58
--- NOTE | 2018-11-16 12:00 | NUR ---
PATIENT SITTING UP EATING WITH NO COMPLAINTS AT THIS TIME. IV INTACT. CALL LIGHT WITHIN REACH.
[2018-11-16 12:51] VITALS: BP 108/70; BP 172/112
--- NOTE | 2018-11-16 15:32 | NUR ---
PATIENT ASSISTED TO BSC AND BACK TO BED. TOLERATED WITH NO PROBLEMS. IV INTACT. NO COMPLAINTS. CALL LIGHT WITHIN REACH.
[2018-11-16 17:26] VITALS: BP 144/61
--- NOTE | 2018-11-16 17:36 | NUR ---
PATIENT IN BED WITH IV INTACT. NO COMPLAINTS OR SIGNS OF DISTRESS. CALL LIGHT WITHIN REACH.
--- NOTE | 2018-11-16 20:30 | NUR ---
A&O X 4. REPORTS PAIN TO LOWER BACK. UP WITH STANDBY ASSIST TO BSC. PRN OINTMENT APPLIED TO DRIED, REDDENED AREA OF SCALP. DENIES FURTHER PAIN, WILL CONTINUE TO MONITOR.
[2018-11-16 21:22] VITALS: BP 151/71
[2018-11-17 01:14] VITALS: BP 131/46
--- NOTE | 2018-11-17 02:53 | NUR ---
I have reviewed this patient and I concur with the Shift Assessment completed by the Licensed Practical Nurse today this shift.
[2018-11-17 04:57] VITALS: BP 146/61
[2018-11-17 06:30] LABS: BASOPHILS 0.1 % (0-2); EOSINOPHILS 0 % (0-7); HEMATOCRIT 37.9 % (36.0-48.0); HEMOGLOBIN 11.8 g/dL (12-16); IMMATURE GRANULOCYTES 1.4 % (0-5); LYMPHOCYTES 10.2 % (15-50); MCH 27.9 pg (26.0-34.0); MCHC 31.1 g/dL (31.0-37.0); MCV 89.6 fL (80.0-100.0); MEAN PLATELET VOLUME 9.9 fL (7.4-10.4); MONOCYTES 7.8 % (2-11); NEUTROPHILS 80.5 % (40-80); PLATELET COUNT 312 10x3/uL (130-400); RBC 4.23 10x6/uL (4.00-5.40); RDW 15.3 % (11.5-14.5); WBC 10.4 10x3/uL (4.8-10.8)
[2018-11-17 06:49] LABS: CALC OSMOLALITY 279 mosm/kg (275-300); CALCIUM 8.1 mg/dL (8.5-10.1); CARBON DIOXIDE 30.5 mmol/L (21.0-32.0); CHLORIDE - SERUM 105 mmol/L (98-107); CREATININE - SERUM 0.5 mg/dL (0.6-1.3); GLUCOSE 100 mg/dL (74-106); POTASSIUM - SERUM 3.8 mmol/L (3.5-5.1); SODIUM 140 mmol/L (136-145); eGFR NON AFRICAN AMERICAN > 90 mL/min (90-120)
[2018-11-17 06:50] LABS: UREA NITROGEN 16 mg/dL (7-18)
--- NOTE | 2018-11-17 07:45 | NUR ---
PATIENT SITTING UP IN BED. CO BACK AND BUTTOCK HURTING. HEATING PAD ACROSS HER CHEST. NO NEEDS AT THIS TIME. CL IN REACH. WCTM
--- NOTE | 2018-11-17 08:45 | NUR ---
PATIENT ASSISTED TO BEDSIDE COMMODE. MEDICATIONS RECEIVED. CL IN REACH. NO FURTHER NEEDS AT THIS TIME. WCTM
[2018-11-17 08:59] VITALS: BP 142/55
--- NOTE | 2018-11-17 10:20 | NUR ---
NUTRITION F/U PT TOLERATING REG DIET WITH GOOD INTAKE RECENT MEALS. WILL CONTINUE TO HONOR FOOD PREFERERNCES, MONITOR PO INTAKE. RD FOLLOWING
[2018-11-17 12:38] VITALS: BP 149/50
[2018-11-17 16:38] VITALS: BP 123/50
[2018-11-17 20:00] VITALS: BP 142/56
--- NOTE | 2018-11-17 20:30 | NUR ---
A&O X 4. AMBULATED TO BS, STAND BY ASSIST REQUESTS PAIN MEDICATION , STATING PERSONAL HEATING PAD ISNT PROVIDING ADEQUATE RELIEF. ENCOURAGED PT TO UTILIZE HOSPITAL WARM PACKS RATHER THAN ELECTRIC PAD. PT REFUSED. WILL CONTINUE TO MONITOR.
[2018-11-18] VITALS: BP 143/74
[2018-11-18 04:00] VITALS: BP 150/46
--- NOTE | 2018-11-18 04:13 | NUR ---
I have reviewed this patient and I concur with the Shift Assessment completed by the Licensed Practical Nurse today this shift.
[2018-11-18 06:05] LABS: BASOPHILS 0 % (0-2); EOSINOPHILS 0 % (0-7); HEMATOCRIT 38.3 % (36.0-48.0); HEMOGLOBIN 11.9 g/dL (12-16); IMMATURE GRANULOCYTES 1.4 % (0-5); LYMPHOCYTES 9.5 % (15-50); MCH 27.8 pg (26.0-34.0); MCHC 31.1 g/dL (31.0-37.0); MCV 89.5 fL (80.0-100.0); MEAN PLATELET VOLUME 10.1 fL (7.4-10.4); MONOCYTES 5.5 % (2-11); NEUTROPHILS 83.6 % (40-80); PLATELET COUNT 315 10x3/uL (130-400); RBC 4.28 10x6/uL (4.00-5.40); RDW 15.2 % (11.5-14.5); WBC 10.9 10x3/uL (4.8-10.8)
[2018-11-18 06:26] LABS: CALC OSMOLALITY 278 mosm/kg (275-300); CALCIUM 8.2 mg/dL (8.5-10.1); CARBON DIOXIDE 27.7 mmol/L (21.0-32.0); CHLORIDE - SERUM 104 mmol/L (98-107); CREATININE - SERUM 0.5 mg/dL (0.6-1.3); GLUCOSE 98 mg/dL (74-106); SODIUM 139 mmol/L (136-145); UREA NITROGEN 16 mg/dL (7-18); eGFR NON AFRICAN AMERICAN > 90 mL/min (90-120)
[2018-11-18 06:27] LABS: POTASSIUM - SERUM 4.4 mmol/L (3.5-5.1)
--- NOTE | 2018-11-18 07:29 | NUR ---
PT IS WITHOUT DISTRESS.NICO IN ROOM GIVING MEDS.CALL LIGHT IN REACH
[2018-11-18 08:26] VITALS: BP 123/60
[2018-11-18] MEDS ORDERED: CLOBETASOL PROP50 ML TOPICAL (13:02)
[2018-11-18] MEDS ORDERED: ULTRAM50 MG PO (13:03)
[2018-11-18] MEDS ORDERED: PREDNISONE20 MG PO (13:06)
[2018-11-18 13:19] VITALS: BP 140/56
--- NOTE | 2018-11-18 14:53 | MORECARE ---
CASE MANAGEMENT DISCHARGE SUMMARY PATIENT: ERA HOGAN UNIT: [id number] ADM DATE: 11/11/18 AGE: 73 : [birth year] SEX: F ROOM/BED: D.2213 AUTHOR: EFREN,DOC PHYSICIAN: REFERRING PHYSICIAN: DESI KRAUSE MD DATE OF SERVICE: 11/18/18 Discharge Plan Patient Name: ERA HOGAN Facility: [facility]:[place] : 1945 Planned Disposition: Home Hlth Svc w Plan Readm Anticipated Discharge Date: Discharge Date: Expected LOS: Initial Reviewer: [email or web address] Initial Review Date: 11/14/2018 Generated: 11/18/18 3:52 pm Comments DCP- Discharge Planning Updated by [email or web address]: Hortencia Mcmillan on 11/18/18 1:[address] PATIENT TO BE [facility]CHARGED [facility] [place] SIGNED TO [facility]UME. IMM SERVED AND EXPLAINED. COPY PLACED IN CHART. PATIENT STATED SON WILL SCRAP BALLER AFTER WHILE. CM TO FOLLOW AND ASSIST WITH DC PLANNING DCP- Discharge Planning Updated by [email or web address]: Kyara Sherman on 11/14/18 4:[address] Patient Name: ERA HOGAN Admission Status: Urgent Accout number: [id number] Admission Date: 11-11-2018 : 1945 Admission Diagnosis:SHORTNESS OF BREATH Attending: DESI KRAUSE Current LOS: 3 Anticipated DC Date: Planned Disposition: Home Hlth Svc w Plan Readm Primary Insurance: MEDICARE A & B Discharge Planning Comments: CM MET WITH PATIENT AND SON ABOUT DC PLANNING/NEEDS. STATES PLANS TO DC TO HOME WITH SON AND RESUME [facility] . CM WILL FOLLOW AND ASSIST. [place] Paver Operator: Kyara Sherman DCPIA - Discharge Planning Initial Assessment Updated by [email or web address]: Kyara Sherman on 11/14/18 5:15 pm * Is the patient Alert and Oriented? Yes * Preadmission Environment Home with Family * ADLs Independent * Equipment Bedside Commode * Other Equipment WALKER, NEBS * List name and contact numbers for known caregivers / representatives who currently or will assist patient after discharge: REYES CHAN, * Community resources currently utilized Home Health * Please name any agencies selected above. [facility] * Additional services required to return to the preadmission environment? No * Can the patient safely return to the preadmission environment? Yes * Has this patient been hospitalized within the prior 30 days at any hospital? No External Providers External Provider: [facility] Next Contact Date: Service Request Date: Service Type: Resolution: Reviewer: Comments: Coverage Notice Reviewer: [email or web address] Renato Mcmillan Notice Issued Date-Time: 11/18/2018 14:10 Notice Type: IM Discharge Notice Notice Delivered To: Patient Relationship to Patient: Primary Special Education Teacher Name: Delivery Method: HAND - Hand Delivered Natalya Days: Prior Verbal Notification: Recipient Understood Notice: Yes Recipient Signature: Yes Med Rec Note Co-signed by Attending: Coverage Notice Comment: Reviewer: [id number] Mcmillan Notice Issued Date-Time: 11/18/2018 14:10 Notice Type: Patient Choice Letter Notice Delivered To: Patient Relationship to Patient: Primary Special Education Teacher Name: Delivery Method: - Natalya Days: Prior Verbal Notification: Recipient Understood Notice: Yes Recipient Signature: Yes Med Rec Note Co-signed by Attending: Coverage Notice Comment: SHERLY SHETTY Last DP export: 11/14/18 4:22 p Patient Name: ERA HOGAN Page [id number] at 1453 All edits/amendments must be made on the electronic document DICTATION DATE: 11/18/181451 TORTS LAW PROFESSOR: WENDY 11/18/181451 RPT#: [id number] DC DATE: STATUS: ADM IN [facility] [address] [place] [address] END OF REPORT
--- NOTE | 2018-11-21 10:15 | MORECARE ---
CASE MANAGEMENT DISCHARGE SUMMARY PATIENT: ERA HOGAN UNIT: [id number] ADM DATE: 11/11/18 AGE: 73 : [birth year] SEX: F ROOM/BED: D.2213 AUTHOR: RAVI SCHWARTZ PHYSICIAN: REFERRING PHYSICIAN: DESI KRAUSE MD DATE OF SERVICE: 11/21/18 Discharge Plan Patient Name: ERA HOGAN Facility: [facility]:[place] : 1945 Planned Disposition: Home Hlth Svc w Plan Readm Anticipated Discharge Date: Discharge Date: 11/18/2018 Expected LOS: 0 Initial Reviewer: [email or web address] Initial Review Date: 11/14/2018 Generated: 11/21/18 11:15 am Comments DCP- Discharge Planning Updated by [id number]: Hortencia Mcmillan on 11/18/18 1:[address] PATIENT TO BE DISCHARGED HOME WITH [facility], [place] SIGNED TO RESUME. IMM SERVED AND EXPLAINED. COPY PLACED IN CHART. PATIENT STATED SON WILL TAPEMAN AFTER WHILE. CM TO FOLLOW AND ASSIST WITH DC PLANNING DCP- Discharge Planning Updated by [id number]: Kyara Sherman on 11/14/18 4:[address] Patient Name: ERA HOGAN Admission Status: Urgent Accout number: [id number] Admission Date: 11-11-2018 : 1945 Admission Diagnosis:SHORTNESS OF BREATH Attending: DESI KRAUSE Current LOS: 3 Anticipated DC Date: Planned Disposition: Home Hlth Svc w Plan Readm Primary Insurance: MEDICARE A & B Discharge Planning Comments: CM MET WITH PATIENT AND SON ABOUT DC PLANNING/NEEDS. [facility] PLANS TO DC TO HOME WITH SON AND RESUME [facility]. CM WILL FOLLOW AND ASSIST. Heavy Equipment Operator/Paver: Kyara Sherman DCPIA - Discharge Planning Initial Assessment Updated by [email or web address]: Kyara Sherman on 11/14/18 5:15 pm * Is the patient Alert and Oriented? Yes * Preadmission Environment Home with Family * ADLs Independent * Equipment Bedside Commode * Other Equipment WALKER, NEBS * List name and contact numbers for known caregivers / representatives who currently or will assist patient after discharge: SONREYES, * Community resources currently utilized Home Health * Please name any agencies selected above. [facility] * Additional services required to return to the preadmission environment? No * Can the patient safely return to the preadmission environment? Yes * Has this patient been hospitalized within the prior 30 days at any hospital? No Coverage Notice Reviewer: [email or web address] Renato Mcmillan Notice Issued Date-Time: 11/18/2018 14:10 Notice Type: IM Discharge Notice Notice Delivered To: Patient Relationship to Patient: Early Head Start Director Name: Delivery Method: HAND - Hand Delivered Natalya Days: Prior Verbal Notification: Recipient Understood Notice: Yes Recipient Signature: Yes Med Rec Note Co-signed by Attending: Coverage Notice Comment: Reviewer: [email or web address] Renato Mcmillan Notice Issued Date-Time: 11/18/2018 14:10 Notice Type: Patient Choice Letter Notice Delivered To: Patient Relationship to Patient: Early Head Start Director Name: Delivery Method: - Natalya Days: Prior Verbal Notification: Recipient Understood Notice: Yes Recipient Signature: Yes Med Rec Note Co-signed by Attending: Coverage Notice Comment: SHERLY SHETTY Last DP export: 11/18/18 1:53 p Patient Name: ERA HOGAN Page [id number] at 1015 All edits/amendments must be made on the electronic document DICTATION DATE: 11/21/18 1015 BATH STEWARD: WENDY 11/21/18 1015 RPT#: [id number] DC DATE:11/18/18 STATUS: DIS IN [facility] [address] [place] [address] END OF REPORT
== END 2018-11-18 17:29 | disposition home health service (06) | DRG 190 ==
LOC: D.MS 16:24
PROVIDERS: ADMIT Family Medicine; ATTEND Family Medicine
DX: J43.9 Emphysema, unspecified (principal); E43 Unspecified severe protein-calorie malnutrition; M48.54XA Collapsed vertebra, not elsewhere classified, thoracic region, initial encounter for fracture; J96.10 Chronic respiratory failure, unspecified whether with hypoxia or hypercapnia; M48.56XA Collapsed vertebra, not elsewhere classified, lumbar region, initial encounter for fracture; Z68.1 Body mass index [BMI] 19.9 or less, adult; L89.152 Pressure ulcer of sacral region, stage 2; Z72.0 Tobacco use; L21.0 Seborrhea capitis; M85.80 Other specified disorders of bone density and structure, unspecified site